=== PATIENT | female | born 1960 | race American Indian/Alaskan Native ===

== ENCOUNTER 2017-01-18 00:13 | Inpatient (IN) | payer SELFPAY ==
--- NOTE | 2017-01-18 00:23 | Emergency Department Report ---
HPI - General Time Seen by Provider: 01/18/17 00:16 - HPI HPI: EMS triage/room 2 The patient is a 56-year-old female presenting with a chief complaint of right- sided weakness. Family states that approximately 19:00 this evening the patient noticed difficulty moving her right side inability to ambulate. Patient denies headache nausea vomiting. Patient states she feels fine except difficulty moving her right side. Location: Right upper extremity, right lower extremity right face Duration: Constant since 19:00 Quality: Weakness Severity: Moderate Modifying factors: [see above] Context: [see above] Mode of transportation: EMS ED Past Medical Hx - Past Medical History Hx Hypertension: Yes Hx Diabetes: Yes - Surgical History Past Surgical History?: No Additional Surgical History: hysterectomy - Family History Family history: no significant - Social History Smoking Status: Never Smoker Substance Use Type: None - Medications Home Medications: Home Medications Medication Instructions Recorded Confirmed Last Taken Type Lisinopril 10 mg PO DAILY 07/16/14 04/19/16 04/14/16 History Ergocalciferol [Vitamin D2] 1 cap PO QWEEK 01/18/17 01/18/17 Unknown History Hydrochlorothiazide [HCTZ] 25 mg PO QDAY 01/18/17 01/18/17 Unknown History glipiZIDE [Glucotrol] 10 mg PO QDAY 01/18/17 01/18/17 Unknown History metFORMIN [Glucophage] 850 mg PO QDAY 01/18/17 01/18/17 Unknown History ED Review of Systems ROS: Stated complaint: CODE STROKE Other details as noted in HPI Comment: All other systems reviewed and negative Constitutional: denies: chills, fever Eyes: denies: eye pain, eye discharge, vision change ENT: denies: ear pain, throat pain Respiratory: denies: cough, shortness of breath, wheezing Cardiovascular: denies: chest pain, palpitations Endocrine: no symptoms reported Gastrointestinal: denies: abdominal pain, nausea, diarrhea Genitourinary: denies: urgency, dysuria, discharge Musculoskeletal: denies: back pain, joint swelling, arthralgia Skin: denies: rash, lesions Neurological: weakness. denies: headache, numbness Psychiatric: denies: anxiety, depression Hematological/Lymphatic: denies: easy bleeding, easy bruising Physical Exam - Physical Exam Physical Exam: GENERAL: The patient is well-developed well-nourished female sitting on EMS stretcher with obvious right facial droop but not appearing to be in acute distress. [] HEENT: Normocephalic. Atraumatic. Extraocular motions are intact. Right facial droop NECK: Supple. Trachea midline CHEST/LUNGS: Clear to auscultation. There is no respiratory distress noted. HEART/CARDIOVASCULAR: Regular. There is no tachycardia. There is no gallop rub or murmur. ABDOMEN: Abdomen is soft, nontender. Patient has normal bowel sounds. There is no abdominal distention. SKIN: There is no rash. There is no edema. There is no diaphoresis. NEURO: The patient is awake, alert, and oriented. The patient is cooperative. Cranial nerves II through XII grossly intact with exception of right facial droop. Left traveling operator 5+/5, right traveling operator 3+/5. Normal sensation throughout. Patient able to flex left lower extremity at the knee and hip without difficulty. Patient uses considerable injury to attempt to flex right lower extremity at the hip and knee. The patient has mild dysarthria. NIHSS= 7 MUSCULOSKELETAL:There is no evidence of acute injury. ED Course - Consultations Consultation #1: 01/18/17 00:32 Tele-neurology paged 01/18/17 00:[address] Taylor- states since patient is also out of window for TPA recommends performing a CT angiogram of the head and neck. This is negative recommends admitting the patient to the hospital for routine stroke workup and management ED Medical Decision Making - Lab Data Result diagrams: 01/18/17 00:15 01/18/17 00:15 Laboratory Tests 01/18/17 01/18/17 01/18/17 00:15 00:15 00:15 WBC 10.8 RBC 4.64 Hgb 14.0 Hct 42.0 MCV 91 MCH 30 MCHC 33 RDW 13.8 Plt Count 312 Lymph % (Auto) 29.6 [place] % (Auto) 6.5 Eos % (Auto) 0.4 Baso % (Auto) 0.8 Lymph # 3.2 [place] # 0.7 Eos # 0.0 Baso # 0.1 Seg Neutrophils % 62.7 Seg Neutrophils # 6.8 PT 13.3 INR 1.02 APTT 29.1 VBG pH Sodium 141 Potassium 3.6 Chloride 103.8 Carbon Dioxide 23 Anion Gap 18 BUN 16 Creatinine 0.6 L Estimated GFR > 60 BUN/Creatinine Ratio 26.66 Glucose 276 H Calcium 8.7 Urine Color Urine Turbidity Urine pH Ur Specific [place] Urine Protein Urine Glucose (UA) Urine Ketones Urine Blood Urine Nitrite Urine Bilirubin Urine Urobilinogen Ur Leukocyte Esterase Urine WBC (Auto) Urine RBC (Auto) U Epithel Cells (Auto) Urine Bacteria (Auto) Urine Mucus 01/18/17 01/18/17 00:15 Unknown WBC RBC Hgb Hct MCV MCH MCHC RDW Plt Count Lymph % (Auto) [place] % (Auto) Eos % (Auto) Baso % (Auto) Lymph # [place] # Eos # Baso # Seg Neutrophils % Seg Neutrophils # PT INR APTT VBG pH 7.405 Sodium Potassium Chloride Carbon Dioxide Anion Gap BUN Creatinine Estimated GFR BUN/Creatinine Ratio Glucose Calcium Urine Color Yellow Urine Turbidity Clear Urine pH 5.0 Ur Specific [place] 1.025 Urine Protein 30 mg/dl Urine Glucose (UA) >=500 Urine Ketones Tr Urine Blood Mod Urine Nitrite Neg Urine Bilirubin Neg Urine Urobilinogen < 2.0 Ur Leukocyte Esterase Lg Urine WBC (Auto) 26.0 H Urine RBC (Auto) 6.0 U Epithel Cells (Auto) 1.0 Urine Bacteria (Auto) 2+ Urine Mucus Few - EKG Data -: EKG Interpreted by Nc EKG shows normal: sinus rhythm Rate: normal - EKG Data When compared to previous EKG there are: no significant change Interpretation: unchanged when compared t (04/19/2016), other (no ischemic changes seen) - Radiology Data Radiology results: report reviewed (CT head, CT angiogram brain, CT angiogram neck), image reviewed (CT head, CT angiogram brain, CT angiogram neck) CT head (read by radiologist)-there is no evidence of acute intracranial process CT angiogram brain/neck (read by radiologist)-normal vascular structures of the head and neck. Critical care attestation.: If time is entered above; I have spent that time in minutes in the direct care of this critically ill patient, excluding procedure time. ED Disposition Clinical Impression: CVA (cerebral vascular accident) Disposition: OP ADMITTED IP TO THIS HOSP Is pt being admited?: Yes Does the pt Need Aspirin: Yes Condition: Fair Referrals: PRIMARY CARE, [Primary Care Provider] - 3-5 Days Time of Disposition: 04:47 (hospitalist paged)
[2017-01-18 00:26] LABS: Basophils % (Auto) 0.8 % (0.0-1.8); Eosinophils % (Auto) 0.4 % (0.0-4.3); Mean Corpuscular HGB Conc 33 % (30-34); Mean Corpuscular Hemoglobin 30 pg (28-32); Mean Corpuscular Volume 91 fl (79-97); Platelet Count 312 K/mm3 (140-440); Red Blood Count 4.64 M/mm3 (3.65-5.03); Red Cell Distribution Width 13.8 % (13.2-15.2); White Blood Count 10.8 K/mm3 (4.5-11.0)
[2017-01-18 00:41] LABS: Chloride 103.8 mmol/L (98-107); Potassium 3.6 mmol/L (3.6-5.0); Sodium 141 mmol/L (137-145)
[2017-01-18 00:42] LABS: Anion Gap 18 mmol/L; BUN/Creatinine Ratio 26.66; Blood Urea Nitrogen 16 mg/dL (7-17); Calcium 8.7 mg/dL (8.4-10.2); Carbon Dioxide 23 mmol/L (22-30); Glucose 276 mg/dL (65-100)
--- NOTE | 2017-01-18 00:44 | Cat Scan Report ---
FINAL REPORT PROCEDURE: CT HEAD/BRAIN WO CON TECHNIQUE: Computerized tomography of the head was performed without contrast material. HISTORY: right-sided weakness COMPARISON: No prior studies are available for comparison. FINDINGS: Skull and scalp: Normal. Paranasal sinuses: There is partial opacification ethmoid and right maxillary sinuses.. Ventricles and subarachnoid spaces: Normal. Cerebrum: No evidence of hemorrhage, acute infarction or mass. Minimal atrophy is noted. Periventricular deep white matter changes. There are multiple old lacunar infarctions of both basal ganglia.. Cerebellum and brainstem: No evidence of hemorrhage, acute infarction or mass. Vasculature: Normal. Comments: None. IMPRESSION: There is no evidence of an acute intracranial process. Mild atrophy and periventricular deep white matter changes are noted. Old lacunar infarctions of both basal ganglia are identified.
[2017-01-18 00:46] LABS: INR 1.02 (0.87-1.13)
[2017-01-18 00:47] LABS: Partial Thromboplastin Time 29.1 Sec. (24.2-36.6)
[2017-01-18] MEDS ORDERED: NACL ONE (01:16)
[2017-01-18 01:57] LABS: Bacteria,Urine 2+ /HPF (Negative); Bilirubin,Urine NEG (Negative); Blood,Urine MOD (Negative); Ketones,Urine TR mg/dL (Negative); Leukocyte Esterase,Urine LG (Negative); Mucus,Urine FEW /HPF; Nitrite,Urine NEG (Negative); Urobilinogen,Urine < 2.0 mg/dL (<2.0)
--- NOTE | 2017-01-18 03:14 | Cat Scan Report ---
FINAL REPORT PROCEDURE: CT ANGIO HEAD TECHNIQUE: Computerized tomographic angiography of the head was performed after the IV injection of iodinated nonionic contrast including image processing. The image data was postprocessed using 2-dimensional multiplanar reformatted (MPR) and 3-dimensional (MIP and/or volume rendered) techniques. HISTORY: right-sided weakness COMPARISON: No prior studies are available for comparison. FINDINGS: Cerebrum: No evidence of acute intracranial hemorrhage, hematoma or infarction. Moderate atrophy and periventricular deep white matter change. There are multiple old lacunar infarctions of both basal ganglia. Cerebellum: No evidence of hemorrhage, acute ischemia or mass. Subarachnoid spaces and ventricles: Normal. Intracranial vessels: Carotid siphon: Normal. Anterior cerebral: Normal. Middle cerebral: Normal. Posterior cerebral:Normal. Vertebral arteries including basilar: Normal. Aneurysms: None. Dural sinuses: Normal. IMPRESSION: The vasculature is normal.
[2017-01-18] MEDS ORDERED: ASPIRIN PO ONE (03:41)
[2017-01-18] MEDS ORDERED: ZOFRAN IV PRN (05:40)
[2017-01-18] MEDS ORDERED: MILK OF MAGNESIA PO PRN (05:40)
[2017-01-18] MEDS ORDERED: DULCOLAX PR PRN (05:40)
[2017-01-18] MEDS ORDERED: TYLENOL PO PRN (05:40)
[2017-01-18] MEDS ORDERED: SODIUM CHLORIDE FLUSH SYRINGE 10 ML IV PRN (05:40)
--- NOTE | 2017-01-18 05:50 | History and Physical Report ---
History of Present Illness Date of examination: 01/18/17 History of present illness: 56-year-old woman with a history of hypertension, diabetes comes emergency room this morning because she discovered that her right side was weak. Speech was also noted to be slurred in the emergency room. Patient has not taken her antihypertensives in 4 days Patient denies chest pain, palpitation, shortness of breath, cough, abdominal pain, hematochezia, dysuria, frequency, fever chills, polydipsia polyuria, hot or cold intolerance, easy bruisability, or rash or bleeding from mucosal membrane, rhinorrhea, epistaxis, earache, tinnitus, blurry vision, eye discharge , anxiety, depression. Other review of systems negative PAST SURGICAL HISTORY: Hysterectomy SOCIAL HISTORY: Smoked one cigar a day, Denies alcohol, drugs FAMILY HISTORY: Hypertension 0 Medications and Allergies Allergies Allergy/AdvReac Type Severity Reaction Status Date / Time No Known Allergies Allergy Unverified 07/16/14 08:02 Home Medications Medication Instructions Recorded Confirmed Last Taken Type Lisinopril 30 mg PO DAILY 07/16/14 01/18/17 04/14/16 History Ergocalciferol [Vitamin D2] 1 cap PO QWEEK 01/18/17 01/18/17 Unknown History Hydrochlorothiazide [HCTZ] 25 mg PO QDAY 01/18/17 01/18/17 Unknown History glipiZIDE [Glucotrol] 10 mg PO QDAY 01/18/17 01/18/17 Unknown History metFORMIN [Glucophage] 850 mg PO QDAY 01/18/17 01/18/17 Unknown History Exam - Physical Exam Narrative exam: Gen. appearance: Patient lying in bed, no apparent distress HEENT: Normocephalic, atraumatic, pupils equally round and reactive to light, extraocular movement intact, and no sclericterus,. No JVD or thyromegaly or nodule,neck supple, no carotid bruit ,mucous membranes moist, no exudate or erythema Heart: S1, S2, regular rate and rhythm Lungs: Clear to auscultation bilaterally, breathing comfortable Abdomen: Positive bowel sounds, nontender, nondistended, no organomegaly Extremity: No edema, cyanosis, clubbing Skin: No rash, nodules, warm, dry Neuro: Oriented 3, cranial nerves II-12 intact, speech is slurred, right hemiparesis 1/5, and sensory intact - Constitutional Vitals: Temp Pulse Resp BP Pulse Ox 98.3 F 77 21 184/103 98 01/18/17 00:29 01/18/17 02:15 01/18/17 02:15 01/18/17 02:15 01/18/17 02:15 Results - Labs CBC & Chem 7: 01/18/17 00:15 01/18/17 00:15 Labs: Abnormal lab results 01/18/17 01/18/17 Range/Units 00:15 Unknown Creatinine 0.6 L (0.7-1.2) mg/dL Glucose 276 H (65-100) mg/dL Urine WBC (Auto) 26.0 H (0.0-6.0) /HPF - Imaging and Cardiology CT Scan - head: report reviewed Assessment and Plan CTA head and neck are reviewed Acute CVA Hypertension uncontrolled Diabetes of 2 Noncompliance Admits medicine Obtain MRI of the head, do neurochecks, swallow screen Start IV hydralazine as needed for blood pressure control Check fingersticks initiate insulin sliding scale Check echo, consult neurology consult physical, speech, occupational therapy Start DVT prophylaxis
[2017-01-18] MEDS: APRESOLINE IV PRN (06:20)
--- NOTE | 2017-01-18 06:34 | Admit Criteria Form ---
Admission Criteria Documentation: TELEMETRY CARE Telemetry Admission Guidelines (Place 'X' for any and all applicable criteria): Admission to telemetry [A] may be indicated for ANY ONE of the following(1)(2)(3 )(4)(5): [ ]I. Cardiac disease, including ANY ONE of the following (9)(10)(11)(12)(13 ): [ ]a) Postacute IL [ ]b) Low-risk patients with ST-segment elevation IL who have undergone successful percutaneous coronary intervention [ ]c) Unstable angina [ ]d) Suspected IL (until it is ruled out) [ ]e) Post cardiac surgery (first 48 to 72 hours unless complications occur) [ ]f) Acute arrhythmias (including significant tachycardia or bradycardia) [B] [ ]g) Firing of an implantable cardioverter defibrillator [C] [ ]h) Suspected pacemaker or implantable cardioverter defibrillator malfunction (10) [ ]i) New administration or adjustment of an antiarrhythmic drug [D ] [ ]j) Child admitted for acute congestive heart failure [ ]j) Long QT syndrome [ ]k) Advanced heart block (eg, second-degree Mobitz type II, third- degree heart block) [ ]l) Acute myocarditis or pericarditis [ ]m) Short-term (ambulatory or inpatient) monitoring after a cardiac procedure as indicated by ANY ONE of the following [E]: [ ]i) Electrophysiologic studies [ ]ii) Percutaneous coronary intervention with stent placement [ ]iii) Pacemaker placement with cardiac conduction defect [ ]iv) Implantable cardiac defibrillator placement [ ]II. Drug overdose or poisoning with substance that causes arrhythmias or QT prolongation (eg, phenothiazines, sympathomimetic agents, cyclic antidepressants, digitalis, antiarrhythmic drugs)(15) [ ]III. Short-term (ambulatory or inpatient) monitoring after therapeutic or diagnostic procedure requiring conscious sedation or anesthesia (eg, endoscopy, elective cardioversion) [X ]IV. Acute cerebrovascular even[F](18) [ ]V. Massive blood transfusion (eg, at least 10 units of packed red blood cells in 24 hours) [ ]. Variceal bleeding after endoscopy, sclerotherapy, or IV vasopressin [ ]VII. Uncorrected electrolyte abnormalities associated with an increased risk of dangerous arrhythmia [G]; examples include [ ]a) Hyperkalemia with attributable ECG changes [ ]b) Potassium greater than 6.5 mmol/L (mEq/L) in a patient without history of chronic renal disease [ ]c) Prolonged QT attributed to hypokalemia, hypomagnesemia, or hypocalcemia [ ]VIII.Unexplained syncope or other neurologic event suspected of being due to arrhythmia due to a finding that increases risk; examples include(19)(20)(21): [ ]a) High-risk ECG findings (eg, bifascicular block, bradycardia, abnormal QT interval, ventricular pre- excitation) [ ]b) History of previous syncope due to arrhythmia [ ]c) Abnormal ventricular function (eg, reduced ejection fraction ) [ ]d) Exertional or supine syncope [ ]e) Concerning syncope characteristics (eg, sudden loss of consciousness without prodrome) [ ]f) Family history of sudden [ ]g) Use of arrhythmogenic medication [ ]h) Suspected cardiac ischemia [ ]i) Known channelopathy (eg, long QT syndrome, Brugada syndrome, or catecholaminergic paroxysmal ventricular tachycardia) [ ]j) Known structural heart disease (eg, hypertrophic cardiomyopathy , severe valvular disease) [ ]k) Palpitations preceding syncope The original [employer] content created by [employer] has been revised. The portions of the content which have been revised are identified through the use of italic text or in bold, and [employer] has neither reviewed nor approved the modified material. All other unmodified content is copyright [employer]. Please see references footnoted in the original [employer] edition 2016 Admission Criteria Met: Yes
--- NOTE | 2017-01-18 08:12 | Progress Note ---
Assessment and Plan - Patient Problems (1) Right sided weakness Current Visit: Yes Status: Acute Plan to address problem: Awaiting further Neurology input , schedule for MRI/MRA of the Brain, ASA, Lipitor (2) Hypertension Current Visit: Yes Status: Acute Qualifiers: Hypertension type: H Plan to address problem: BP moderately controlled History Interval history: Patient admits to right sided weakness Hospitalist Physical - Constitutional Vitals: Temp Pulse Resp BP Pulse Ox 98.3 F 70 22 192/101 100 01/18/17 00:29 01/18/17 06:20 01/18/17 06:16 01/18/17 06:20 01/18/17 06:16 General appearance: Present: mild distress - EENT Eyes: Present: PERRL, EOM intact ENT: hearing intact, clear oral mucosa - Neck Neck: Present: supple, normal ROM - Respiratory Respiratory effort: normal Respiratory: bilateral: CTA - Cardiovascular Rhythm: regular Heart Sounds: Present: S1 & S2 - Extremities Extremities: no ischemia, pulses symmetrical - Abdominal General gastrointestinal: soft, non-tender, non-distended, normal bowel sounds - Psychiatric Psychiatric: appropriate mood/affect, intact judgment & insight - Neurologic Neurologic: other (right sided weakness) Results - Labs CBC & Chem 7: 01/18/17 00:15 01/18/17 00:15 Labs: Laboratory Last Values WBC 10.8 K/mm3 (4.5-11.0) 01/18/17 00:15 RBC 4.64 M/mm3 (3.65-5.03) 01/18/17 00:15 Hgb 14.0 gm/dl (10.1-14.3) 01/18/17 00:15 Hct 42.0 % (30.3-42.9) 01/18/17 00:15 MCV 91 fl (79-97) 01/18/17 00:15 MCH 30 pg (28-32) 01/18/17 00:15 MCHC 33 % (30-34) 01/18/17 00:15 RDW 13.8 % (13.2-15.2) 01/18/17 00:15 Plt Count 312 K/mm3 (140-440) 01/18/17 00:15 Lymph % (Auto) 29.6 % (13.4-35.0) 01/18/17 00:15 [place] % (Auto) 6.5 % (0.0-7.3) 01/18/17 00:15 Eos % (Auto) 0.4 % (0.0-4.3) 01/18/17 00:15 Baso % (Auto) 0.8 % (0.0-1.8) 01/18/17 00:15 Lymph # 3.2 K/mm3 (1.2-5.4) 01/18/17 00:15 [place] # 0.7 K/mm3 (0.0-0.8) 01/18/17 00:15 Eos # 0.0 K/mm3 (0.0-0.4) 01/18/17 00:15 Baso # 0.1 K/mm3 (0.0-0.1) 01/18/17 00:15 Seg Neutrophils % 62.7 % (40.0-70.0) 01/18/17 00:15 Seg Neutrophils # 6.8 K/mm3 (1.8-7.7) 01/18/17 00:15 PT 13.3 Sec. (12.2-14.9) 01/18/17 00:15 INR 1.02 (0.87-1.13) 01/18/17 00:15 APTT 29.1 Sec. (24.2-36.6) 01/18/17 00:15 VBG pH 7.405 (7.320-7.420) 01/18/17 00:15 Sodium 141 mmol/L (137-145) 01/18/17 00:15 Potassium 3.6 mmol/L (3.6-5.0) 01/18/17 00:15 Chloride 103.8 mmol/L (98-107) 01/18/17 00:15 Carbon Dioxide 23 mmol/L (22-30) 01/18/17 00:15 Anion Gap 18 mmol/L 01/18/17 00:15 BUN 16 mg/dL (7-17) 01/18/17 00:15 Creatinine 0.6 mg/dL (0.7-1.2) L 01/18/17 00:15 Estimated GFR > 60 ml/min 01/18/17 00:15 BUN/Creatinine Ratio 26.66 % 01/18/17 00:15 Glucose 276 mg/dL (65-100) H 01/18/17 00:15 Calcium 8.7 mg/dL (8.4-10.2) 01/18/17 00:15 Urine Color Yellow (Yellow) 01/18/17 Unknown Urine Turbidity Clear (Clear) 01/18/17 Unknown Urine pH 5.0 (5.0-7.0) 01/18/17 Unknown Ur Specific [place] 1.025 (1.003-1.030) 01/18/17 Unknown Urine Protein 30 mg/dl mg/dL (Negative) 01/18/17 Unknown Urine Glucose (UA) >=500 mg/dL (Negative) 01/18/17 Unknown Urine Ketones Tr mg/dL (Negative) 01/18/17 Unknown Urine Blood Mod (Negative) 01/18/17 Unknown Urine Nitrite Neg (Negative) 01/18/17 Unknown Urine Bilirubin Neg (Negative) 01/18/17 Unknown Urine Urobilinogen < 2.0 mg/dL (<2.0) 01/18/17 Unknown Ur Leukocyte Esterase Lg (Negative) 01/18/17 Unknown Urine WBC (Auto) 26.0 /HPF (0.0-6.0) H 01/18/17 Unknown Urine RBC (Auto) 6.0 /HPF (0.0-6.0) 01/18/17 Unknown U Epithel Cells (Auto) 1.0 /HPF (0-13.0) 01/18/17 Unknown Urine Bacteria (Auto) 2+ /HPF (Negative) 01/18/17 Unknown Urine Mucus Few /HPF 01/18/17 Unknown
[2017-01-18] MEDS: LOVENOX SUB-Q SCH (09:55)
[2017-01-18] MEDS: ASPIRIN PO SCH (09:55)
[2017-01-18] MEDS ORDERED: LOVENOX SUB-Q SCH (10:00)
--- NOTE | 2017-01-18 11:46 | Consultation ---
History of Present Illness Consult date: 01/18/17 Requesting physician: HENRIETTA SANCHEZ Reason for Consult: stroke Chief complaint: R side weakness History of present illness: 56 YO F Hx HTN/DM2 p/w acute onset R sided weakness onset 01/17 @ 3 PM. Sx are constant. There are no clear aggravating, relieving or temporal factors. Severity was enough to cause inability to effectively use the right side. She denies numbness/tingling pain. Past History Past Medical History: diabetes, hypertension Past Surgical History: No surgical history Social history: single, Lives alone, smoking. denies: prescription drug abuse, IV drug use Family history: diabetes, hypertension Medications and Allergies Allergies Allergy/AdvReac Type Severity Reaction Status Date / Time No Known Allergies Allergy Unverified 07/16/14 08:02 Home Medications Medication Instructions Recorded Confirmed Last Taken Type Lisinopril 30 mg PO DAILY 07/16/14 01/18/17 04/14/16 History Ergocalciferol [Vitamin D2] 1 cap PO QWEEK 01/18/17 01/18/17 Unknown History Hydrochlorothiazide [HCTZ] 25 mg PO QDAY 01/18/17 01/18/17 Unknown History glipiZIDE [Glucotrol] 10 mg PO QDAY 01/18/17 01/18/17 Unknown History metFORMIN [Glucophage] 850 mg PO QDAY 01/18/17 01/18/17 Unknown History Active Meds: Active Medications Acetaminophen (Tylenol) 650 mg PO Q4H PRN PRN Reason: Pain, Mild (1-3) Aspirin (Aspirin) 325 mg PO QDAY [facility] Last Admin: 01/18/17 09:55 Dose: 325 mg Bisacodyl (Dulcolax) 10 mg CA QDAY PRN PRN Reason: Constipation Enoxaparin Sodium (Lovenox) 40 mg SUB-Q QDAY@1000 [facility] Last Admin: 01/18/17 09:55 Dose: 40 mg Hydralazine HCl (Apresoline) 5 mg IV Q6H PRN PRN Reason: Keep SBP between 160-185 mm Hg Last Admin: 01/18/17 06:20 Dose: 5 mg Magnesium Hydroxide (Milk Of Magnesia) 30 ml PO Q4H PRN PRN Reason: Constipation Ondansetron HCl (Zofran) 4 mg IV Q8H PRN PRN Reason: N/V unrelieved by Reglan Simvastatin (Zocor) 20 mg PO QHS DIONNE Sodium Chloride (Sodium Chloride Flush Syringe 10 Ml) 10 ml IV PRN PRN PRN Reason: LINE FLUSH Review of Systems Constitutional: fatigue Neurological: weakness, change in speech (slurred), gait dysfunction, motor disturbance, no parathesias, no numbness, no tingling, no syncope, no headaches , no sensory deficit, no double vision, no loss of vision Physical Examination - Vital Signs Vital Signs: Vital Signs Temp Pulse Resp BP Pulse Ox 98.3 F 73 14 222/100 99 01/18/17 00:29 01/18/17 00:29 01/18/17 00:29 01/18/17 00:01/18/17 00:29 - Constitutional General appearance: comfortable, acutely ill - EENT EENT: Present: ATNC, PERRL, mucous membranes moist, hearing intact, vision intact - Respiratory Respiratory: Present: chest non-tender, normal breath sounds, no respiratory distress - Cardiovascular Cardiovascular: Present: regular rate Extremities: Present: no peripheral edema bilatateraly, no clubbing, cyanosis, no inflammation, no ischemia or petechiae - Gastrointestinal Gastrointestinal: Present: normoactive bowel sounds, soft, non-distended - Integumentary Integumentary: Present: normal - Neurologic Cranial nerve examination: PERRL, EOMI, VFF, V1/V2/V3 grossly intact, tongue midline, intact, Intact Vestibulo-ocular r, intact corneal reflex, facial droop (mild on R) Speech examination: other (slurred) Sensorimotor examination: pronator drift (R), hemiparesis (R) Motor examination - right side: 3/5: biceps, triceps, wrist flexion, wrist extension, coremaker floor, hip flexors, knee extensors, dorsiflexion, toe extension (EHL) , plantarflexion Motor examination - left side: 5/5: biceps, triceps, wrist flexion, wrist extension, coremaker floor, hip flexors, knee extensors, dorsiflexion, toe extension (EHL) , plantarflexion Detailed sensory examination: intact, light touch, temperature Reflex and gait examination: Babinski's sign (on R) Reflexes: 0: ankle, 3+: bicep, knee, tricep - Musculoskeletal Musculoskeletal: Present: no fluid collection, no pain, normal range of motion - Psychiatric Psychiatric: Present: mood/affect appropriate, cooperative Results - Laboratory Findings CBC and BMP: 01/18/17 00:15 01/18/17 00:15 Abnormal Lab Findings: Abnormal Labs 01/18/17 Unknown Urine WBC (Auto) 26.0 H Assessment and Plan 56 YO F Hx HTN/DM2 p/w R sided acute weakness suspected pure motor acute lacunar stroke syndrome. CTH neg. CTA H/N neg. Plan and Recommendation: 1. No indication for pharmacologic thrombolysis with IV tPA or mechanical thrombectomy due to last known normal > 6 hrs from presentation. Current NIHSS 4. 2. Telemetry bed w/ Q4 hour neuro checks 3. Brain imaging: MRI Brain w/o [place] Stroke Protocol 4. TTE to eval for possible cardiac source of embolism 5. Serum Labs: HgA1c, LDL. 6. Permissive HTN for first 24-48 hours: HOB < 30 degrees, isotonic IVF prn and refrain from active Tx of HTN unless BP > 185/105 or pt develops malignant HTN. Can lower MAPs by 10-15% daily to reach goal SBP 120-160 after permissive HTN period 7. Secondary stroke prevention: ASA 325mg Daily x 1 then 81mg QDay & upgrade to full dose statin therapy (Crestor 20mg or 40mg OR Lipitor 40mg or 80mg Daily OR Zocor 40mg QDay) for goal LDL < 70. No firm indication at this point for therapeutic anticoagulation as pt has not had AFib captured on telemetry monitoring. 8. F/E/N: isotonic IVF prn, prn replete, bedside speech/swallow eval prior to PO intake. 9. DVT Prophylaxis 10. Stroke education, PT/OT/Speech Therapy consults, CM evaluation 11. For any changes in neurologic status, pls obtain STAT CTH w/o contrast and call neurology
[2017-01-18] MEDS: ZOCOR PO SCH (22:59)
[2017-01-19 09:30] LABS: Basophils % (Auto) 0.5 % (0.0-1.8); Eosinophils % (Auto) 0.9 % (0.0-4.3); Hematocrit 39.8 % (30.3-42.9); Hemoglobin 13.2 gm/dl (10.1-14.3); Mean Corpuscular HGB Conc 33 % (30-34); Mean Corpuscular Hemoglobin 30 pg (28-32); Mean Corpuscular Volume 90 fl (79-97); Platelet Count 266 K/mm3 (140-440); Red Blood Count 4.43 M/mm3 (3.65-5.03); Red Cell Distribution Width 13.9 % (13.2-15.2); White Blood Count 7.1 K/mm3 (4.5-11.0)
[2017-01-19 10:04] LABS: Alanine Aminotransferase 13 units/L (7-56); Albumin 3.5 g/dL (3.9-5); Albumin/Globulin Ratio 1.1 %; Alkaline Phosphatase 73 units/L (35-129); Anion Gap 17 mmol/L; BUN/Creatinine Ratio 15.71; Blood Urea Nitrogen 11 mg/dL (7-17); Calcium 8.7 mg/dL (8.4-10.2); Carbon Dioxide 25 mmol/L (22-30); Chloride 99.3 mmol/L (98-107); Cholesterol 183 mg/dL (50-199); Glucose 271 mg/dL (65-100); HDL Cholesterol 45 mg/dL (40-59); LDL Cholesterol,Direct 121 mg/dL (50-130); Potassium 3.4 mmol/L (3.6-5.0); Sodium 138 mmol/L (137-145); Total Protein 6.8 g/dL (6.3-8.2); Triglycerides 86 mg/dL (2-149)
--- NOTE | 2017-01-19 11:18 | Magnetic Resonance Report ---
MRA HEAD WITHOUT CONTRAST HISTORY: Stroke. [id number] imaging with MIP reformations of the [place] is submitted. The arteries appear widely patent and free of hemodynamically significant stenosis or aneurysm dilatation. Both vertebral arteries are identified appearing patent as well. IMPRESSION: Unremarkable MRA head.
--- NOTE | 2017-01-19 11:18 | Magnetic Resonance Report ---
MRI OF THE BRAIN WITHOUT CONTRAST: HISTORY: CVA PROCEDURE: Multiplanar, multisequence MR imaging of the brain without IV contrast was performed. FINDINGS: A 1.1 cm focus of diffusion restriction is identified in the left basal ganglia on diffusion image 19. No other areas of diffusion restriction are identified. No evidence for mass, hemorrhage or extra-axial fluid collection. Mild cortical volume loss and nonspecific chronic white matter changes are noted. Chronic focal infarct in the anterior right basal ganglia is noted measuring up to 1.3 cm. No large chronic infarct. The midline structures are central. The basal cisterns are patent. Normal ventricular size. The orbital cavities and sella turcica demonstrate no abnormality. The visualized paranasal sinuses and mastoid air cells are well aerated. IMPRESSION: 1.1 cm focus of acute to subacute ischemia in the left basal ganglia as described. No evidence for hemorrhage. Chronic volume loss and chronic white matter changes.
[2017-01-19] MEDS: ZESTRIL PO SCH (12:30)
[2017-01-19] MEDS: LOVENOX SUB-Q SCH (12:31)
[2017-01-19] MEDS: HCTZ PO SCH (12:31)
[2017-01-19] MEDS: ASPIRIN PO SCH (12:31)
[2017-01-19] MEDS: NOVOLOG SUB-Q SCH ×2 (18:41→23:09)
[2017-01-19] MEDS: ZOCOR PO SCH (22:56)
[2017-01-20] MEDS: APRESOLINE IV PRN (01:21)
[2017-01-20] MEDS: ZESTRIL PO SCH (09:38)
[2017-01-20] MEDS: HCTZ PO SCH (09:38)
[2017-01-20] MEDS: LOVENOX SUB-Q SCH (09:38)
[2017-01-20] MEDS: GLUCOPHAGE PO SCH (09:38)
[2017-01-20] MEDS: ASPIRIN PO SCH (09:38)
[2017-01-20] MEDS: NOVOLOG SUB-Q SCH ×4 (10:40→22:58)
--- NOTE | 2017-01-20 16:54 | Progress Note ---
Assessment and Plan - Patient Problems (1) CVA (cerebral vascular accident) Current Visit: Yes Status: Acute Qualifiers: CVA mechanism: C Precerebral and cerebral artery: P Laterality of affected vessel: L (2) Hypertension Current Visit: Yes Status: Acute Qualifiers: Hypertension type: H (3) Right sided weakness Current Visit: Yes Status: Acute Hospitalist Physical - Constitutional Vitals: Temp Pulse Resp BP Pulse Ox 98.1 F 92 H 20 142/76 97 01/20/17 09:00 01/20/17 09:00 01/20/17 09:00 01/20/17 09:00 01/20/17 09:00 General appearance: Present: mild distress Results - Labs CBC & Chem 7: 01/19/17 08:38 01/19/17 08:38 Labs: Laboratory Last Values WBC 7.1 K/mm3 (4.5-11.0) 01/19/17 08:38 RBC 4.43 M/mm3 (3.65-5.03) 01/19/17 08:38 Hgb 13.2 gm/dl (10.1-14.3) 01/19/17 08:38 Hct 39.8 % (30.3-42.9) 01/19/17 08:38 MCV 90 fl (79-97) 01/19/17 08:38 MCH 30 pg (28-32) 01/19/17 08:38 MCHC 33 % (30-34) 01/19/17 08:38 RDW 13.9 % (13.2-15.2) 01/19/17 08:38 Plt Count 266 K/mm3 (140-440) 01/19/17 08:38 Lymph % (Auto) 32.6 % (13.4-35.0) 01/19/17 08:38 [place] % (Auto) 8.2 % (0.0-7.3) H 01/19/17 08:38 Eos % (Auto) 0.9 % (0.0-4.3) 01/19/17 08:38 Baso % (Auto) 0.5 % (0.0-1.8) 01/19/17 08:38 Lymph # 2.3 K/mm3 (1.2-5.4) 01/19/17 08:38 [place] # 0.6 K/mm3 (0.0-0.8) 01/19/17 08:38 Eos # 0.1 K/mm3 (0.0-0.4) 01/19/17 08:38 Baso # 0.0 K/mm3 (0.0-0.1) 01/19/17 08:38 Seg Neutrophils % 57.8 % (40.0-70.0) 01/19/17 08:38 Seg Neutrophils # 4.1 K/mm3 (1.8-7.7) 01/19/17 08:38 PT 13.3 Sec. (12.2-14.9) 01/18/17 00:15 INR 1.02 (0.87-1.13) 01/18/17 00:15 APTT 29.1 Sec. (24.2-36.6) 01/18/17 00:15 VBG pH 7.405 (7.320-7.420) 01/18/17 00:15 Sodium 138 mmol/L (137-145) 01/19/17 08:38 Potassium 3.4 mmol/L (3.6-5.0) L 01/19/17 08:38 Chloride 99.3 mmol/L (98-107) 01/19/17 08:38 Carbon Dioxide 25 mmol/L (22-30) 01/19/17 08:38 Anion Gap 17 mmol/L 01/19/17 08:38 BUN 11 mg/dL (7-17) 01/19/17 08:38 Creatinine 0.7 mg/dL (0.7-1.2) 01/19/17 08:38 Estimated GFR > 60 ml/min 01/19/17 08:38 BUN/Creatinine Ratio 15.71 % 01/19/17 08:38 Glucose 271 mg/dL (65-100) H 01/19/17 08:38 POC Glucose 184 (70-105) H 01/19/17 22:20 Hemoglobin A1c 12.4 % (4-6) H 01/19/17 08:38 Calcium 8.7 mg/dL (8.4-10.2) 01/19/17 08:38 Total Bilirubin 0.40 mg/dL (0.1-1.2) 01/19/17 08:38 AST 11 units/L (5-40) 01/19/17 08:38 ALT 13 units/L (7-56) 01/19/17 08:38 Alkaline Phosphatase 73 units/L (35-129) 01/19/17 08:38 Total Protein 6.8 g/dL (6.3-8.2) 01/19/17 08:38 Albumin 3.5 g/dL (3.9-5) L 01/19/17 08:38 Albumin/Globulin Ratio 1.1 % 01/19/17 08:38 Triglycerides 86 mg/dL (2-149) 01/19/17 08:38 Cholesterol 183 mg/dL (50-199) 01/19/17 08:38 LDL Cholesterol Direct 121 mg/dL (50-130) 01/19/17 08:38 HDL Cholesterol 45 mg/dL (40-59) 01/19/17 08:38 Cholesterol/HDL Ratio 4.06 % 01/19/17 08:38 Urine Color Yellow (Yellow) 01/18/17 Unknown Urine Turbidity Clear (Clear) 01/18/17 Unknown Urine pH 5.0 (5.0-7.0) 01/18/17 Unknown Ur Specific [place] 1.025 (1.003-1.030) 01/18/17 Unknown Urine Protein 30 mg/dl mg/dL (Negative) 01/18/17 Unknown Urine Glucose (UA) >=500 mg/dL (Negative) 01/18/17 Unknown Urine Ketones Tr mg/dL (Negative) 01/18/17 Unknown Urine Blood Mod (Negative) 01/18/17 Unknown Urine Nitrite Neg (Negative) 01/18/17 Unknown Urine Bilirubin Neg (Negative) 01/18/17 Unknown Urine Urobilinogen < 2.0 mg/dL (<2.0) 01/18/17 Unknown Ur Leukocyte Esterase Lg (Negative) 01/18/17 Unknown Urine WBC (Auto) 26.0 /HPF (0.0-6.0) H 01/18/17 Unknown Urine RBC (Auto) 6.0 /HPF (0.0-6.0) 01/18/17 Unknown U Epithel Cells (Auto) 1.0 /HPF (0-13.0) 01/18/17 Unknown Urine Bacteria (Auto) 2+ /HPF (Negative) 01/18/17 Unknown Urine Mucus Few /HPF 01/18/17 Unknown
[2017-01-20] MEDS: ZOCOR PO SCH (22:03)
--- NOTE | 2017-01-21 08:14 | Progress Note ---
Assessment and Plan - Patient Problems (1) Right sided weakness Current Visit: Yes Status: Acute Plan to address problem: Secondary to acute CVA. Continue PT OT. Continue aspirin. Awaiting further recommendations about rehabilitation. Continue Zocor for lipid lowering. (2) Hypertension Current Visit: Yes Status: Acute Qualifiers: Hypertension type: H Plan to address problem: BP moderately controlled. Continue blood pressure meds (3) Diabetes mellitus Current Visit: Yes Status: Acute Qualifiers: Diabetes mellitus type: D Diabetes mellitus complication status: D Diabetes mellitus complication detail: D Diabetic retinopathy severity: D Proliferative retinopathy type: P Diabetes mellitus macular edema: D Diabetes mellitus senior care insulin use: D Laterality: L Chronic kidney disease stage: C Plan to address problem: Diabetes that appears to be uncontrolled. Hemoglobin A1c is 12.4. We'll continue patient on ADA diet sliding scale insulin, Accu-Cheks. We'll start Lantus 15 units daily at bedtime and continue metformin History Interval history: Patient lying in bed this morning stated that she feels okay Hospitalist Physical - Constitutional Vitals: Temp Pulse Resp BP Pulse Ox 98.1 F 80 20 136/80 97 01/21/17 05:52 01/21/17 05:52 01/21/17 05:52 01/21/17 05:52 01/21/17 05:52 General appearance: Present: no acute distress - EENT Eyes: Present: PERRL, EOM intact ENT: hearing intact, clear oral mucosa - Neck Neck: Present: supple, normal ROM - Respiratory Respiratory effort: normal Respiratory: bilateral: CTA - Cardiovascular Rhythm: regular Heart Sounds: Present: S1 & S2 - Extremities Extremities: no ischemia, No edema - Abdominal General gastrointestinal: soft, non-tender, non-distended, normal bowel sounds - Psychiatric Psychiatric: appropriate mood/affect, intact judgment & insight - Neurologic Neurologic: other (right-sided weakness) Results - Labs CBC & Chem 7: 01/19/17 08:38 01/19/17 08:38 Labs: Laboratory Last Values WBC 7.1 K/mm3 (4.5-11.0) 01/19/17 08:38 RBC 4.43 M/mm3 (3.65-5.03) 01/19/17 08:38 Hgb 13.2 gm/dl (10.1-14.3) 01/19/17 08:38 Hct 39.8 % (30.3-42.9) 01/19/17 08:38 MCV 90 fl (79-97) 01/19/17 08:38 MCH 30 pg (28-32) 01/19/17 08:38 MCHC 33 % (30-34) 01/19/17 08:38 RDW 13.9 % (13.2-15.2) 01/19/17 08:38 Plt Count 266 K/mm3 (140-440) 01/19/17 08:38 Lymph % (Auto) 32.6 % (13.4-35.0) 01/19/17 08:38 [place] % (Auto) 8.2 % (0.0-7.3) H 01/19/17 08:38 Eos % (Auto) 0.9 % (0.0-4.3) 01/19/17 08:38 Baso % (Auto) 0.5 % (0.0-1.8) 01/19/17 08:38 Lymph # 2.3 K/mm3 (1.2-5.4) 01/19/17 08:38 [place] # 0.6 K/mm3 (0.0-0.8) 01/19/17 08:38 Eos # 0.1 K/mm3 (0.0-0.4) 01/19/17 08:38 Baso # 0.0 K/mm3 (0.0-0.1) 01/19/17 08:38 Seg Neutrophils % 57.8 % (40.0-70.0) 01/19/17 08:38 Seg Neutrophils # 4.1 K/mm3 (1.8-7.7) 01/19/17 08:38 PT 13.3 Sec. (12.2-14.9) 01/18/17 00:15 INR 1.02 (0.87-1.13) 01/18/17 00:15 APTT 29.1 Sec. (24.2-36.6) 01/18/17 00:15 VBG pH 7.405 (7.320-7.420) 01/18/17 00:15 Sodium 138 mmol/L (137-145) 01/19/17 08:38 Potassium 3.4 mmol/L (3.6-5.0) L 01/19/17 08:38 Chloride 99.3 mmol/L (98-107) 01/19/17 08:38 Carbon Dioxide 25 mmol/L (22-30) 01/19/17 08:38 Anion Gap 17 mmol/L 01/19/17 08:38 BUN 11 mg/dL (7-17) 01/19/17 08:38 Creatinine 0.7 mg/dL (0.7-1.2) 01/19/17 08:38 Estimated GFR > 60 ml/min 01/19/17 08:38 BUN/Creatinine Ratio 15.71 % 01/19/17 08:38 Glucose 271 mg/dL (65-100) H 01/19/17 08:38 POC Glucose 291 (70-105) H 01/20/17 22:15 Hemoglobin A1c 12.4 % (4-6) H 01/19/17 08:38 Calcium 8.7 mg/dL (8.4-10.2) 01/19/17 08:38 Total Bilirubin 0.40 mg/dL (0.1-1.2) 01/19/17 08:38 AST 11 units/L (5-40) 01/19/17 08:38 ALT 13 units/L (7-56) 01/19/17 08:38 Alkaline Phosphatase 73 units/L (35-129) 01/19/17 08:38 Total Protein 6.8 g/dL (6.3-8.2) 01/19/17 08:38 Albumin 3.5 g/dL (3.9-5) L 01/19/17 08:38 Albumin/Globulin Ratio 1.1 % 01/19/17 08:38 Triglycerides 86 mg/dL (2-149) 01/19/17 08:38 Cholesterol 183 mg/dL (50-199) 01/19/17 08:38 LDL Cholesterol Direct 121 mg/dL (50-130) 01/19/17 08:38 HDL Cholesterol 45 mg/dL (40-59) 01/19/17 08:38 Cholesterol/HDL Ratio 4.06 % 01/19/17 08:38 Urine Color Yellow (Yellow) 01/18/17 Unknown Urine Turbidity Clear (Clear) 01/18/17 Unknown Urine pH 5.0 (5.0-7.0) 01/18/17 Unknown Ur Specific [place] 1.025 (1.003-1.030) 01/18/17 Unknown Urine Protein 30 mg/dl mg/dL (Negative) 01/18/17 Unknown Urine Glucose (UA) >=500 mg/dL (Negative) 01/18/17 Unknown Urine Ketones Tr mg/dL (Negative) 01/18/17 Unknown Urine Blood Mod (Negative) 01/18/17 Unknown Urine Nitrite Neg (Negative) 01/18/17 Unknown Urine Bilirubin Neg (Negative) 01/18/17 Unknown Urine Urobilinogen < 2.0 mg/dL (<2.0) 01/18/17 Unknown Ur Leukocyte Esterase Lg (Negative) 01/18/17 Unknown Urine WBC (Auto) 26.0 /HPF (0.0-6.0) H 01/18/17 Unknown Urine RBC (Auto) 6.0 /HPF (0.0-6.0) 01/18/17 Unknown U Epithel Cells (Auto) 1.0 /HPF (0-13.0) 01/18/17 Unknown Urine Bacteria (Auto) 2+ /HPF (Negative) 01/18/17 Unknown Urine Mucus Few /HPF 01/18/17 Unknown
[2017-01-21] MEDS: GLUCOPHAGE PO SCH (08:51)
[2017-01-21] MEDS: NOVOLOG SUB-Q SCH ×4 (08:52→22:14)
[2017-01-21] MEDS: ASPIRIN PO SCH (09:02)
[2017-01-21] MEDS: ZESTRIL PO SCH (09:02)
[2017-01-21] MEDS: HCTZ PO SCH (09:02)
[2017-01-21] MEDS: LOVENOX SUB-Q SCH (09:04)
[2017-01-21] MEDS: ZOCOR PO SCH (22:20)
[2017-01-21] MEDS: LEVEMIR SUB-Q SCH (22:20)
[2017-01-22 07:58] LABS: Basophils % (Auto) 0.5 % (0.0-1.8); Eosinophils % (Auto) 1.5 % (0.0-4.3); Hematocrit 40.1 % (30.3-42.9); Hemoglobin 13.4 gm/dl (10.1-14.3); Mean Corpuscular HGB Conc 34 % (30-34); Mean Corpuscular Hemoglobin 30 pg (28-32); Mean Corpuscular Volume 91 fl (79-97); Platelet Count 272 K/mm3 (140-440); Red Blood Count 4.44 M/mm3 (3.65-5.03); Red Cell Distribution Width 13.8 % (13.2-15.2); White Blood Count 5.9 K/mm3 (4.5-11.0)
[2017-01-22 08:08] LABS: Alanine Aminotransferase 15 units/L (7-56); Albumin 3.5 g/dL (3.9-5); Alkaline Phosphatase 68 units/L (35-129); Anion Gap 16 mmol/L; BUN/Creatinine Ratio 21.42; Blood Urea Nitrogen 15 mg/dL (7-17); Calcium 9.1 mg/dL (8.4-10.2); Carbon Dioxide 27 mmol/L (22-30); Chloride 98.8 mmol/L (98-107); Glucose 156 mg/dL (65-100); Potassium 3.2 mmol/L (3.6-5.0); Sodium 139 mmol/L (137-145); Total Protein 6.9 g/dL (6.3-8.2)
[2017-01-22] MEDS: GLUCOPHAGE PO SCH (08:52)
[2017-01-22] MEDS: NOVOLOG SUB-Q SCH ×4 (08:55→22:44)
[2017-01-22] MEDS: ZESTRIL PO SCH (10:59)
[2017-01-22] MEDS: HCTZ PO SCH (10:59)
[2017-01-22] MEDS: ASPIRIN PO SCH (11:00)
[2017-01-22] MEDS: LOVENOX SUB-Q SCH (11:00)
--- NOTE | 2017-01-22 13:10 | Progress Note ---
Assessment and Plan Assessment and plan: Acute CVA with right-sided weakness. Continue PT/OT. Continue aspirin and Zocor for secondary prevention. Continue stroke education, PT/OT/speech therapy. No indication for pharmacologic thrombolysis with IV tPA or mechanical thrombectomy due to last known normal > 6 hrs from presentation. Follow-up MRI. Hypertension. Continue current hypertensive medications. Diabetes mellitus type 2. Diabetes appears to be uncontrolled given hemoglobin A1c is 12.4. Lantus started at bedtime. Continue metformin. Continue Accu- Cheks and sliding scale insulin. History Interval history: No new issues overnight. Hospitalist Physical - Constitutional Vitals: Temp Pulse Resp BP Pulse Ox 98.6 F 87 22 130/79 97 01/22/17 11:25 01/22/17 11:25 01/22/17 11:25 01/22/17 11:25 01/22/17 07:25 General appearance: Present: no acute distress - EENT Eyes: Present: PERRL, EOM intact ENT: hearing intact, clear oral mucosa, dentition normal - Neck Neck: Present: supple, normal ROM - Respiratory Respiratory effort: normal Respiratory: bilateral: CTA - Cardiovascular Rhythm: regular Heart Sounds: Present: S1 & S2. Absent: gallop, rub - Extremities Extremities: no ischemia, No edema, Full ROM - Abdominal General gastrointestinal: soft, non-tender, non-distended, normal bowel sounds - Integumentary Integumentary: Present: clear, warm, dry - Neurologic Neurologic: CNII-XII intact, moves all extremities Results - Labs CBC & Chem 7: 01/22/17 07:01 01/22/17 07:01 Labs: Laboratory Last Values WBC 5.9 K/mm3 (4.5-11.0) 01/22/17 07:01 RBC 4.44 M/mm3 (3.65-5.03) 01/22/17 07:01 Hgb 13.4 gm/dl (10.1-14.3) 01/22/17 07:01 Hct 40.1 % (30.3-42.9) 01/22/17 07:01 MCV 91 fl (79-97) 01/22/17 07:01 MCH 30 pg (28-32) 01/22/17 07:01 MCHC 34 % (30-34) 01/22/17 07:01 RDW 13.8 % (13.2-15.2) 01/22/17 07:01 Plt Count 272 K/mm3 (140-440) 01/22/17 07:01 Lymph % (Auto) 35.6 % (13.4-35.0) H 01/22/17 07:01 [place] % (Auto) 9.9 % (0.0-7.3) H 01/22/17 07:01 Eos % (Auto) 1.5 % (0.0-4.3) 01/22/17 07:01 Baso % (Auto) 0.5 % (0.0-1.8) 01/22/17 07:01 Lymph # 2.1 K/mm3 (1.2-5.4) 01/22/17 07:01 [place] # 0.6 K/mm3 (0.0-0.8) 01/22/17 07:01 Eos # 0.1 K/mm3 (0.0-0.4) 01/22/17 07:01 Baso # 0.0 K/mm3 (0.0-0.1) 01/22/17 07:01 Seg Neutrophils % 52.5 % (40.0-70.0) 01/22/17 07:01 Seg Neutrophils # 3.1 K/mm3 (1.8-7.7) 01/22/17 07:01 PT 13.3 Sec. (12.2-14.9) 01/18/17 00:15 INR 1.02 (0.87-1.13) 01/18/17 00:15 APTT 29.1 Sec. (24.2-36.6) 01/18/17 00:15 VBG pH 7.405 (7.320-7.420) 01/18/17 00:15 Sodium 139 mmol/L (137-145) 01/22/17 07:01 Potassium 3.2 mmol/L (3.6-5.0) L 01/22/17 07:01 Chloride 98.8 mmol/L (98-107) 01/22/17 07:01 Carbon Dioxide 27 mmol/L (22-30) 01/22/17 07:01 Anion Gap 16 mmol/L 01/22/17 07:01 BUN 15 mg/dL (7-17) 01/22/17 07:01 Creatinine 0.7 mg/dL (0.7-1.2) 01/22/17 07:01 Estimated GFR > 60 ml/min 01/22/17 07:01 BUN/Creatinine Ratio 21.42 % 01/22/17 07:01 Glucose 156 mg/dL (65-100) H 01/22/17 07:01 POC Glucose 216 (70-105) H 01/22/17 12:06 Hemoglobin A1c 12.4 % (4-6) H 01/19/17 08:38 Calcium 9.1 mg/dL (8.4-10.2) 01/22/17 07:01 Total Bilirubin 0.40 mg/dL (0.1-1.2) 01/22/17 07:01 AST 10 units/L (5-40) 01/22/17 07:01 ALT 15 units/L (7-56) 01/22/17 07:01 Alkaline Phosphatase 68 units/L (35-129) 01/22/17 07:01 Total Protein 6.9 g/dL (6.3-8.2) 01/22/17 07:01 Albumin 3.5 g/dL (3.9-5) L 01/22/17 07:01 Albumin/Globulin Ratio 1.0 % 01/22/17 07:01 Triglycerides 86 mg/dL (2-149) 01/19/17 08:38 Cholesterol 183 mg/dL (50-199) 01/19/17 08:38 LDL Cholesterol Direct 121 mg/dL (50-130) 01/19/17 08:38 HDL Cholesterol 45 mg/dL (40-59) 01/19/17 08:38 Cholesterol/HDL Ratio 4.06 % 01/19/17 08:38 Urine Color Yellow (Yellow) 01/18/17 Unknown Urine Turbidity Clear (Clear) 01/18/17 Unknown Urine pH 5.0 (5.0-7.0) 01/18/17 Unknown Ur Specific [place] 1.025 (1.003-1.030) 01/18/17 Unknown Urine Protein 30 mg/dl mg/dL (Negative) 01/18/17 Unknown Urine Glucose (UA) >=500 mg/dL (Negative) 01/18/17 Unknown Urine Ketones Tr mg/dL (Negative) 01/18/17 Unknown Urine Blood Mod (Negative) 01/18/17 Unknown Urine Nitrite Neg (Negative) 01/18/17 Unknown Urine Bilirubin Neg (Negative) 01/18/17 Unknown Urine Urobilinogen < 2.0 mg/dL (<2.0) 01/18/17 Unknown Ur Leukocyte Esterase Lg (Negative) 01/18/17 Unknown Urine WBC (Auto) 26.0 /HPF (0.0-6.0) H 01/18/17 Unknown Urine RBC (Auto) 6.0 /HPF (0.0-6.0) 01/18/17 Unknown U Epithel Cells (Auto) 1.0 /HPF (0-13.0) 01/18/17 Unknown Urine Bacteria (Auto) 2+ /HPF (Negative) 01/18/17 Unknown Urine Mucus Few /HPF 01/18/17 Unknown
[2017-01-22] MEDS: LEVEMIR SUB-Q SCH (22:42)
[2017-01-22] MEDS: ZOCOR PO SCH (22:45)
[2017-01-23 06:57] LABS: Basophils % (Auto) 0.7 % (0.0-1.8); Eosinophils % (Auto) 1.5 % (0.0-4.3); Hematocrit 40.1 % (30.3-42.9); Hemoglobin 13.3 gm/dl (10.1-14.3); Mean Corpuscular HGB Conc 33 % (30-34); Mean Corpuscular Hemoglobin 30 pg (28-32); Mean Corpuscular Volume 91 fl (79-97); Platelet Count 275 K/mm3 (140-440); Red Blood Count 4.39 M/mm3 (3.65-5.03); Red Cell Distribution Width 13.5 % (13.2-15.2); White Blood Count 6.5 K/mm3 (4.5-11.0)
[2017-01-23 07:40] LABS: Anion Gap 18 mmol/L; Blood Urea Nitrogen 16 mg/dL (7-17); Carbon Dioxide 28 mmol/L (22-30); Chloride 96.8 mmol/L (98-107); Glucose 98 mg/dL (65-100); Potassium 3.1 mmol/L (3.6-5.0); Sodium 140 mmol/L (137-145)
[2017-01-23] MEDS: GLUCOPHAGE PO SCH (11:23)
[2017-01-23] MEDS: ASPIRIN PO SCH (11:23)
[2017-01-23] MEDS: ZESTRIL PO SCH (11:24)
[2017-01-23] MEDS: LOVENOX SUB-Q SCH (11:24)
[2017-01-23] MEDS: HCTZ PO SCH (11:24)
[2017-01-23] MEDS: NOVOLOG SUB-Q SCH ×3 (11:26→22:30)
--- NOTE | 2017-01-23 11:57 | Progress Note ---
Assessment and Plan Assessment and plan: 1. Acute CVA with right-sided weakness. Continue PT/OT. Continue aspirin and Zocor for secondary prevention. Continue stroke education, PT/OT/speech therapy. No indication for pharmacologic thrombolysis with IV tPA or mechanical thrombectomy due to last known normal > 6 hrs from presentation. MRI revealed a 1.1 cm focus of acute to subacute ischemia in the left basal ganglia. No evidence of hemorrhage. MRA was unremarkable. Echocardiogram revealed mild concentric left ventricular hypertrophy. Global left ventricular wall motion and contractility at all within normal limits. Global left ventricle systolic function is normal. EF 55-60%. Abnormal left ventricular diastolic filling observed consistent with impaired relaxation. Neurology following. 2. Hypertension. Continue current hypertensive medications. Maintain blood pressure per neurology recommendations. 3. Diabetes mellitus type 2. Diabetes appears to be uncontrolled given hemoglobin A1c is 12.4. Lantus started at bedtime. Continue metformin. Continue Accu-Cheks and sliding scale insulin.\ 4. Disposition. Physical therapy recommends for acute rehabilitation discharge. However, patient has no insurance. Case management is aware and working diligently regarding discharge planning. History Interval history: No new issues overnight. Hospitalist Physical - Constitutional Vitals: Temp Pulse Resp BP Pulse Ox 98.1 F 78 18 141/77 98 01/23/17 08:00 01/23/17 11:24 01/23/17 08:00 01/23/17 11:24 01/23/17 08:00 General appearance: Present: no acute distress - EENT Eyes: Present: PERRL, EOM intact ENT: hearing intact, clear oral mucosa, dentition normal - Neck Neck: Present: supple, normal ROM - Respiratory Respiratory effort: normal Respiratory: bilateral: CTA - Cardiovascular Rhythm: regular Heart Sounds: Present: S1 & S2. Absent: gallop, rub - Extremities Extremities: no ischemia, No edema, Full ROM - Abdominal General gastrointestinal: soft, non-tender, non-distended, normal bowel sounds - Integumentary Integumentary: Present: clear, warm, dry - Neurologic Neurologic: CNII-XII intact, moves all extremities Results - Labs CBC & Chem 7: 01/23/17 06:27 01/23/17 06:27 Labs: Laboratory Last Values WBC 6.5 K/mm3 (4.5-11.0) 01/23/17 06:27 RBC 4.39 M/mm3 (3.65-5.03) 01/23/17 06:27 Hgb 13.3 gm/dl (10.1-14.3) 01/23/17 06:27 Hct 40.1 % (30.3-42.9) 01/23/17 06:27 MCV 91 fl (79-97) 01/23/17 06:27 MCH 30 pg (28-32) 01/23/17 06:27 MCHC 33 % (30-34) 01/23/17 06:27 RDW 13.5 % (13.2-15.2) 01/23/17 06:27 Plt Count 275 K/mm3 (140-440) 01/23/17 06:27 Lymph % (Auto) 40.0 % (13.4-35.0) H 01/23/17 06:27 [place] % (Auto) 12.4 % (0.0-7.3) H 01/23/17 06:27 Eos % (Auto) 1.5 % (0.0-4.3) 01/23/17 06:27 Baso % (Auto) 0.7 % (0.0-1.8) 01/23/17 06:27 Lymph # 2.6 K/mm3 (1.2-5.4) 01/23/17 06:27 [place] # 0.8 K/mm3 (0.0-0.8) 01/23/17 06:27 Eos # 0.1 K/mm3 (0.0-0.4) 01/23/17 06:27 Baso # 0.0 K/mm3 (0.0-0.1) 01/23/17 06:27 Seg Neutrophils % 45.4 % (40.0-70.0) 01/23/17 06:27 Seg Neutrophils # 3.0 K/mm3 (1.8-7.7) 01/23/17 06:27 PT 13.3 Sec. (12.2-14.9) 01/18/17 00:15 INR 1.02 (0.87-1.13) 01/18/17 00:15 APTT 29.1 Sec. (24.2-36.6) 01/18/17 00:15 VBG pH 7.405 (7.320-7.420) 01/18/17 00:15 Sodium 140 mmol/L (137-145) 01/23/17 06:27 Potassium 3.1 mmol/L (3.6-5.0) L 01/23/17 06:27 Chloride 96.8 mmol/L (98-107) L 01/23/17 06:27 Carbon Dioxide 28 mmol/L (22-30) 01/23/17 06:27 Anion Gap 18 mmol/L 01/23/17 06:27 BUN 16 mg/dL (7-17) 01/23/17 06:27 Creatinine 0.8 mg/dL (0.7-1.2) 01/23/17 06:27 Estimated GFR > 60 ml/min 01/23/17 06:27 BUN/Creatinine Ratio 20.00 % 01/23/17 06:27 Glucose 98 mg/dL (65-100) 01/23/17 06:27 POC Glucose 359 (70-105) H 01/22/17 21:39 Hemoglobin A1c 12.4 % (4-6) H 01/19/17 08:38 Calcium 9.0 mg/dL (8.4-10.2) 01/23/17 06:27 Total Bilirubin 0.40 mg/dL (0.1-1.2) 01/22/17 07:01 AST 10 units/L (5-40) 01/22/17 07:01 ALT 15 units/L (7-56) 01/22/17 07:01 Alkaline Phosphatase 68 units/L (35-129) 01/22/17 07:01 Total Protein 6.9 g/dL (6.3-8.2) 01/22/17 07:01 Albumin 3.5 g/dL (3.9-5) L 01/22/17 07:01 Albumin/Globulin Ratio 1.0 % 01/22/17 07:01 Triglycerides 86 mg/dL (2-149) 01/19/17 08:38 Cholesterol 183 mg/dL (50-199) 01/19/17 08:38 LDL Cholesterol Direct 121 mg/dL (50-130) 01/19/17 08:38 HDL Cholesterol 45 mg/dL (40-59) 01/19/17 08:38 Cholesterol/HDL Ratio 4.06 % 01/19/17 08:38 Urine Color Yellow (Yellow) 01/18/17 Unknown Urine Turbidity Clear (Clear) 01/18/17 Unknown Urine pH 5.0 (5.0-7.0) 01/18/17 Unknown Ur Specific [place] 1.025 (1.003-1.030) 01/18/17 Unknown Urine Protein 30 mg/dl mg/dL (Negative) 01/18/17 Unknown Urine Glucose (UA) >=500 mg/dL (Negative) 01/18/17 Unknown Urine Ketones Tr mg/dL (Negative) 01/18/17 Unknown Urine Blood Mod (Negative) 01/18/17 Unknown Urine Nitrite Neg (Negative) 01/18/17 Unknown Urine Bilirubin Neg (Negative) 01/18/17 Unknown Urine Urobilinogen < 2.0 mg/dL (<2.0) 01/18/17 Unknown Ur Leukocyte Esterase Lg (Negative) 01/18/17 Unknown Urine WBC (Auto) 26.0 /HPF (0.0-6.0) H 01/18/17 Unknown Urine RBC (Auto) 6.0 /HPF (0.0-6.0) 01/18/17 Unknown U Epithel Cells (Auto) 1.0 /HPF (0-13.0) 01/18/17 Unknown Urine Bacteria (Auto) 2+ /HPF (Negative) 01/18/17 Unknown Urine Mucus Few /HPF 01/18/17 Unknown
[2017-01-23] MEDS ORDERED: K-DUR PO ONE ×2 (15:00→17:30)
[2017-01-23] MEDS: ZOCOR PO SCH (22:03)
[2017-01-23] MEDS: LEVEMIR SUB-Q SCH (22:35)
[2017-01-24] MEDS: GLUCOPHAGE PO SCH (08:09)
[2017-01-24] MEDS: HCTZ PO SCH (10:09)
[2017-01-24] MEDS: ASPIRIN PO SCH (10:10)
[2017-01-24] MEDS: LOVENOX SUB-Q SCH (10:11)
[2017-01-24] MEDS: ZESTRIL PO SCH (11:10)
--- NOTE | 2017-01-24 11:37 | Progress Note ---
Assessment and Plan - Patient Problems (1) CVA (cerebral vascular accident) Current Visit: Yes Status: Acute Qualifiers: CVA mechanism: C Precerebral and cerebral artery: P Laterality of affected vessel: left Plan to address problem: Patient with acute CVA left basal ganglia. Provided stroke education with family. Discussed subacute rehabilitation. Continue physical therapy OT aspirin and statin. Blood pressure fairly well-controlled. [facility]. Case management aggressively seeking transfer now. (2) Diabetes mellitus Current Visit: Yes Status: Acute Qualifiers: Diabetes mellitus type: D Diabetes mellitus complication status: D Diabetes mellitus complication detail: D Diabetic retinopathy severity: D Proliferative retinopathy type: P Diabetes mellitus macular edema: D Diabetes mellitus [facility] insulin use: D Laterality: L Chronic kidney disease stage: C Plan to address problem: Diabetes suboptimal control. Insulin was just adjusted yesterday. We'll not change at this particular time discussed with family. If remains elevated tomorrow would titrate up tomorrow. (3) Hypertension Current Visit: Yes Status: Acute Qualifiers: Hypertension type: H Plan to address problem: Hypertension well-controlled with current antihypertensives at this time. (4) Right sided weakness Current Visit: Yes Status: Acute History Interval history: Patient mother at the bedside all questions and concerns answered to their satisfaction. Patient mother did state that the daughter was a little slow at baseline however seemed to be a bit more slow today. This is in fact secondary to her CVA this was explained to the mother to her satisfaction. All concerns answered. Hospitalist Physical - Constitutional Vitals: Temp Pulse Resp BP Pulse Ox 97.3 F L 71 16 144/83 97 01/24/17 10:39 01/24/17 10:39 01/24/17 10:39 01/24/17 10:39 01/24/17 10:39 General appearance: Present: no acute distress - EENT Eyes: Present: PERRL, EOM intact ENT: hearing intact, clear oral mucosa, dentition normal (ABG wasmanagement slow motion and) - Neck Neck: Present: supple, normal ROM - Respiratory Respiratory effort: normal Respiratory: bilateral: CTA - Cardiovascular Rhythm: regular Heart Sounds: Present: S1 & S2 - Extremities Extremities: pulses intact, pulses symmetrical, No edema Extremity abnormal: other (right-sided hemiparesis) Peripheral Pulses: within normal limits - Abdominal General gastrointestinal: soft, non-tender, non-distended - Psychiatric Psychiatric: appropriate mood/affect, cooperative - Neurologic Neurologic: focal deficits Results - Labs CBC & Chem 7: 01/23/17 06:27 01/23/17 06:27 Labs: Laboratory Last Values WBC 6.5 K/mm3 (4.5-11.0) 01/23/17 06:27 RBC 4.39 M/mm3 (3.65-5.03) 01/23/17 06:27 Hgb 13.3 gm/dl (10.1-14.3) 01/23/17 06:27 Hct 40.1 % (30.3-42.9) 01/23/17 06:27 MCV 91 fl (79-97) 01/23/17 06:27 MCH 30 pg (28-32) 01/23/17 06:27 MCHC 33 % (30-34) 01/23/17 06:27 RDW 13.5 % (13.2-15.2) 01/23/17 06:27 Plt Count 275 K/mm3 (140-440) 01/23/17 06:27 Lymph % (Auto) 40.0 % (13.4-35.0) H 01/23/17 06:27 [place] % (Auto) 12.4 % (0.0-7.3) H 01/23/17 06:27 Eos % (Auto) 1.5 % (0.0-4.3) 01/23/17 06:27 Baso % (Auto) 0.7 % (0.0-1.8) 01/23/17 06:27 Lymph # 2.6 K/mm3 (1.2-5.4) 01/23/17 06:27 [place] # 0.8 K/mm3 (0.0-0.8) 01/23/17 06:27 Eos # 0.1 K/mm3 (0.0-0.4) 01/23/17 06:27 Baso # 0.0 K/mm3 (0.0-0.1) 01/23/17 06:27 Seg Neutrophils % 45.4 % (40.0-70.0) 01/23/17 06:27 Seg Neutrophils # 3.0 K/mm3 (1.8-7.7) 01/23/17 06:27 PT 13.3 Sec. (12.2-14.9) 01/18/17 00:15 INR 1.02 (0.87-1.13) 01/18/17 00:15 APTT 29.1 Sec. (24.2-36.6) 01/18/17 00:15 VBG pH 7.405 (7.320-7.420) 01/18/17 00:15 Sodium 140 mmol/L (137-145) 01/23/17 06:27 Potassium 3.1 mmol/L (3.6-5.0) L 01/23/17 06:27 Chloride 96.8 mmol/L (98-107) L 01/23/17 06:27 Carbon Dioxide 28 mmol/L (22-30) 01/23/17 06:27 Anion Gap 18 mmol/L 01/23/17 06:27 BUN 16 mg/dL (7-17) 01/23/17 06:27 Creatinine 0.8 mg/dL (0.7-1.2) 01/23/17 06:27 Estimated GFR > 60 ml/min 01/23/17 06:27 BUN/Creatinine Ratio 20.00 % 01/23/17 06:27 Glucose 98 mg/dL (65-100) 01/23/17 06:27 POC Glucose 211 (70-105) H 01/24/17 07:11 Hemoglobin A1c 12.4 % (4-6) H 01/19/17 08:38 Calcium 9.0 mg/dL (8.4-10.2) 01/23/17 06:27 Total Bilirubin 0.40 mg/dL (0.1-1.2) 01/22/17 07:01 AST 10 units/L (5-40) 01/22/17 07:01 ALT 15 units/L (7-56) 01/22/17 07:01 Alkaline Phosphatase 68 units/L (35-129) 01/22/17 07:01 Total Protein 6.9 g/dL (6.3-8.2) 01/22/17 07:01 Albumin 3.5 g/dL (3.9-5) L 01/22/17 07:01 Albumin/Globulin Ratio 1.0 % 01/22/17 07:01 Triglycerides 86 mg/dL (2-149) 01/19/17 08:38 Cholesterol 183 mg/dL (50-199) 01/19/17 08:38 LDL Cholesterol Direct 121 mg/dL (50-130) 01/19/17 08:38 HDL Cholesterol 45 mg/dL (40-59) 01/19/17 08:38 Cholesterol/HDL Ratio 4.06 % 01/19/17 08:38 Urine Color Yellow (Yellow) 01/18/17 Unknown Urine Turbidity Clear (Clear) 01/18/17 Unknown Urine pH 5.0 (5.0-7.0) 01/18/17 Unknown Ur Specific [place] 1.025 (1.003-1.030) 01/18/17 Unknown Urine Protein 30 mg/dl mg/dL (Negative) 01/18/17 Unknown Urine Glucose (UA) >=500 mg/dL (Negative) 01/18/17 Unknown Urine Ketones Tr mg/dL (Negative) 01/18/17 Unknown Urine Blood Mod (Negative) 01/18/17 Unknown Urine Nitrite Neg (Negative) 01/18/17 Unknown Urine Bilirubin Neg (Negative) 01/18/17 Unknown Urine Urobilinogen < 2.0 mg/dL (<2.0) 01/18/17 Unknown Ur Leukocyte Esterase Lg (Negative) 01/18/17 Unknown Urine WBC (Auto) 26.0 /HPF (0.0-6.0) H 01/18/17 Unknown Urine RBC (Auto) 6.0 /HPF (0.0-6.0) 01/18/17 Unknown U Epithel Cells (Auto) 1.0 /HPF (0-13.0) 01/18/17 Unknown Urine Bacteria (Auto) 2+ /HPF (Negative) 01/18/17 Unknown Urine Mucus Few /HPF 01/18/17 Unknown
[2017-01-24] MEDS: NOVOLOG SUB-Q SCH ×3 (16:19→22:39)
[2017-01-24] MEDS: LEVEMIR SUB-Q SCH (22:37)
[2017-01-24] MEDS: ZOCOR PO SCH (22:38)
[2017-01-25] MEDS: NOVOLOG SUB-Q SCH ×5 (07:30→21:39)
[2017-01-25] MEDS: GLUCOPHAGE PO SCH (11:11)
[2017-01-25] MEDS: ASPIRIN PO SCH (11:11)
[2017-01-25] MEDS: HCTZ PO SCH (11:12)
[2017-01-25] MEDS: ZESTRIL PO SCH (11:12)
[2017-01-25] MEDS: LOVENOX SUB-Q SCH (11:12)
--- NOTE | 2017-01-25 18:05 | Progress Note ---
Assessment and Plan - Patient Problems (1) CVA (cerebral vascular accident) Current Visit: Yes Status: Acute Qualifiers: CVA mechanism: C Precerebral and cerebral artery: P Laterality of affected vessel: left Plan to address problem: With acute CVA left basal ganglia stroke. Eating well here for rehabilitation. Pending [facility] facility for repeat rehabilitation no insurance at this particular time case management working diligently on finding placed in a place. 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 (3) Hypertension Current Visit: Yes Status: Acute Qualifiers: Hypertension type: H Plan to address problem: Hypertension well-controlled with current antihypertensives at this time. (4) Right sided weakness Current Visit: Yes Status: Acute Plan to address problem: Waiting placement. History Interval history: She is up eating mother at bedside. All questions and concerns answered. Discussed insurance problems and rhythm finding to [facility] facility for rehabilitation. Chest pain no shortness of breath no altered mental status. Hospitalist Physical - Constitutional Vitals: Temp Pulse Resp BP Pulse Ox 98.0 F 84 18 130/74 98 01/25/17 07:30 01/25/17 12:00 01/25/17 10:00 01/25/17 11:12 01/25/17 07:30 General appearance: Present: no acute distress - EENT Eyes: Present: PERRL, EOM intact ENT: hearing intact, clear oral mucosa, dentition normal - Neck Neck: Present: supple, normal ROM - Respiratory Respiratory effort: normal Respiratory: bilateral: CTA - Cardiovascular Rhythm: regular - Extremities Extremities: no ischemia, No edema Extremity abnormal: edema Peripheral Pulses: within normal limits - Abdominal General gastrointestinal: soft, non-tender, non-distended, no hypoactive bowel sounds, no absent bowel sounds - Integumentary Integumentary: Present: clear, warm, dry - Psychiatric Psychiatric: appropriate mood/affect - Neurologic Neurologic: CNII-XII intact, focal deficits Results - Labs CBC & Chem 7: 01/23/17 06:27 01/23/17 06:27 Labs: Laboratory Last Values WBC 6.5 K/mm3 (4.5-11.0) 01/23/17 06:27 RBC 4.39 M/mm3 (3.65-5.03) 01/23/17 06:27 Hgb 13.3 gm/dl (10.1-14.3) 01/23/17 06:27 Hct 40.1 % (30.3-42.9) 01/23/17 06:27 MCV 91 fl (79-97) 01/23/17 06:27 MCH 30 pg (28-32) 01/23/17 06:27 MCHC 33 % (30-34) 01/23/17 06:27 RDW 13.5 % (13.2-15.2) 01/23/17 06:27 Plt Count 275 K/mm3 (140-440) 01/23/17 06:27 Lymph % (Auto) 40.0 % (13.4-35.0) H 01/23/17 06:27 [place] % (Auto) 12.4 % (0.0-7.3) H 01/23/17 06:27 Eos % (Auto) 1.5 % (0.0-4.3) 01/23/17 06:27 Baso % (Auto) 0.7 % (0.0-1.8) 01/23/17 06:27 Lymph # 2.6 K/mm3 (1.2-5.4) 01/23/17 06:27 [place] # 0.8 K/mm3 (0.0-0.8) 01/23/17 06:27 Eos # 0.1 K/mm3 (0.0-0.4) 01/23/17 06:27 Baso # 0.0 K/mm3 (0.0-0.1) 01/23/17 06:27 Seg Neutrophils % 45.4 % (40.0-70.0) 01/23/17 06:27 Seg Neutrophils # 3.0 K/mm3 (1.8-7.7) 01/23/17 06:27 PT 13.3 Sec. (12.2-14.9) 01/18/17 00:15 INR 1.02 (0.87-1.13) 01/18/17 00:15 APTT 29.1 Sec. (24.2-36.6) 01/18/17 00:15 VBG pH 7.405 (7.320-7.420) 01/18/17 00:15 Sodium 140 mmol/L (137-145) 01/23/17 06:27 Potassium 3.1 mmol/L (3.6-5.0) L 01/23/17 06:27 Chloride 96.8 mmol/L (98-107) L 01/23/17 06:27 Carbon Dioxide 28 mmol/L (22-30) 01/23/17 06:27 Anion Gap 18 mmol/L 01/23/17 06:27 BUN 16 mg/dL (7-17) 01/23/17 06:27 Creatinine 0.8 mg/dL (0.7-1.2) 01/23/17 06:27 Estimated GFR > 60 ml/min 01/23/17 06:27 BUN/Creatinine Ratio 20.00 % 01/23/17 06:27 Glucose 98 mg/dL (65-100) 01/23/17 06:27 POC Glucose 242 (70-105) H 01/25/17 11:28 Hemoglobin A1c 12.4 % (4-6) H 01/19/17 08:38 Calcium 9.0 mg/dL (8.4-10.2) 01/23/17 06:27 Total Bilirubin 0.40 mg/dL (0.1-1.2) 01/22/17 07:01 AST 10 units/L (5-40) 01/22/17 07:01 ALT 15 units/L (7-56) 01/22/17 07:01 Alkaline Phosphatase 68 units/L (35-129) 01/22/17 07:01 Total Protein 6.9 g/dL (6.3-8.2) 01/22/17 07:01 Albumin 3.5 g/dL (3.9-5) L 01/22/17 07:01 Albumin/Globulin Ratio 1.0 % 01/22/17 07:01 Triglycerides 86 mg/dL (2-149) 01/19/17 08:38 Cholesterol 183 mg/dL (50-199) 01/19/17 08:38 LDL Cholesterol Direct 121 mg/dL (50-130) 01/19/17 08:38 HDL Cholesterol 45 mg/dL (40-59) 01/19/17 08:38 Cholesterol/HDL Ratio 4.06 % 01/19/17 08:38 Urine Color Yellow (Yellow) 01/18/17 Unknown Urine Turbidity Clear (Clear) 01/18/17 Unknown Urine pH 5.0 (5.0-7.0) 01/18/17 Unknown Ur Specific [place] 1.025 (1.003-1.030) 01/18/17 Unknown Urine Protein 30 mg/dl mg/dL (Negative) 01/18/17 Unknown Urine Glucose (UA) >=500 mg/dL (Negative) 01/18/17 Unknown Urine Ketones Tr mg/dL (Negative) 01/18/17 Unknown Urine Blood Mod (Negative) 01/18/17 Unknown Urine Nitrite Neg (Negative) 01/18/17 Unknown Urine Bilirubin Neg (Negative) 01/18/17 Unknown Urine Urobilinogen < 2.0 mg/dL (<2.0) 01/18/17 Unknown Ur Leukocyte Esterase Lg (Negative) 01/18/17 Unknown Urine WBC (Auto) 26.0 /HPF (0.0-6.0) H 01/18/17 Unknown Urine RBC (Auto) 6.0 /HPF (0.0-6.0) 01/18/17 Unknown U Epithel Cells (Auto) 1.0 /HPF (0-13.0) 01/18/17 Unknown Urine Bacteria (Auto) 2+ /HPF (Negative) 01/18/17 Unknown Urine Mucus Few /HPF 01/18/17 Unknown
[2017-01-25] MEDS: ZOCOR PO SCH (21:34)
[2017-01-25] MEDS: LEVEMIR SUB-Q SCH (21:34)
[2017-01-26] MEDS: NOVOLOG SUB-Q SCH ×5 (09:55→21:55)
[2017-01-26] MEDS: HCTZ PO SCH (10:53)
[2017-01-26] MEDS: LOVENOX SUB-Q SCH (10:53)
[2017-01-26] MEDS: ASPIRIN PO SCH (10:53)
[2017-01-26] MEDS: GLUCOPHAGE PO SCH (10:53)
[2017-01-26] MEDS: ZESTRIL PO SCH (10:53)
--- NOTE | 2017-01-26 17:05 | Progress Note ---
Assessment and Plan Assessment and plan: 56-year-old with acute CVA with dense hemiparesis anticoagulated scheduled for rehabilitation. Total Time Spent with Patient (Minutes): 22 - Patient Problems (1) CVA (cerebral vascular accident) Current Visit: Yes Status: Acute Qualifiers: CVA mechanism: C Precerebral and cerebral artery: P Laterality of affected vessel: left Plan to address problem: At present patient just awaiting rehabilitation has passed per Mrs. Drummond stable waiting for rehabilitation services to take his case her case. Very pleasant good rehabilitation potential. 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 (3) Hypertension Current Visit: Yes Status: Acute Qualifiers: Hypertension type: H Plan to address problem: Hypertension well-controlled with current antihypertensives at this time. (4) Right sided weakness Current Visit: Yes Status: Acute Plan to address problem: Waiting placement. History Interval history: Patient talking without the mother. Alert and smiling no new concerns. Awaiting placement. Hospitalist Physical - Constitutional Vitals: Temp Pulse Resp BP Pulse Ox 98.9 F 75 20 152/90 98 01/26/17 16:24 01/26/17 16:24 01/26/17 16:24 01/26/17 16:24 01/26/17 16:24 General appearance: Present: no acute distress - EENT Eyes: Present: PERRL, EOM intact ENT: hearing intact, clear oral mucosa, dentition normal, other - Neck Neck: Present: supple. Absent: enlarged thyroid (facial droop some dysphagia and mild), masses or JVD, cervical LAD, carotid bruits - Respiratory Respiratory effort: normal Respiratory: bilateral: CTA - Cardiovascular Rhythm: regularly irregular Heart Sounds: Present: S1 & S2, systolic murmur - Extremities Extremities: no ischemia, pulses intact, pulses symmetrical Extremity abnormal: edema, other (hemiparesis) Peripheral Pulses: within normal limits - Abdominal General gastrointestinal: soft, non-tender, non-distended - Integumentary Integumentary: Present: clear, warm, dry - Psychiatric Psychiatric: appropriate mood/affect, intact judgment & insight, cooperative ( dense hemiparesis) - Neurologic Neurologic: CNII-XII intact, focal deficits, other Results - Labs CBC & Chem 7: 01/23/17 06:27 01/23/17 06:27 Labs: Laboratory Last Values WBC 6.5 K/mm3 (4.5-11.0) 01/23/17 06:27 RBC 4.39 M/mm3 (3.65-5.03) 01/23/17 06:27 Hgb 13.3 gm/dl (10.1-14.3) 01/23/17 06:27 Hct 40.1 % (30.3-42.9) 01/23/17 06:27 MCV 91 fl (79-97) 01/23/17 06:27 MCH 30 pg (28-32) 01/23/17 06:27 MCHC 33 % (30-34) 01/23/17 06:27 RDW 13.5 % (13.2-15.2) 01/23/17 06:27 Plt Count 275 K/mm3 (140-440) 01/23/17 06:27 Lymph % (Auto) 40.0 % (13.4-35.0) H 01/23/17 06:27 [place] % (Auto) 12.4 % (0.0-7.3) H 01/23/17 06:27 Eos % (Auto) 1.5 % (0.0-4.3) 01/23/17 06:27 Baso % (Auto) 0.7 % (0.0-1.8) 01/23/17 06:27 Lymph # 2.6 K/mm3 (1.2-5.4) 01/23/17 06:27 [place] # 0.8 K/mm3 (0.0-0.8) 01/23/17 06:27 Eos # 0.1 K/mm3 (0.0-0.4) 01/23/17 06:27 Baso # 0.0 K/mm3 (0.0-0.1) 01/23/17 06:27 Seg Neutrophils % 45.4 % (40.0-70.0) 01/23/17 06:27 Seg Neutrophils # 3.0 K/mm3 (1.8-7.7) 05/31/17 06:27 PT 13.3 Sec. (12.2-14.9) 01/18/17 00:15 INR 1.02 (0.87-1.13) 01/18/17 00:15 APTT 29.1 Sec. (24.2-36.6) 01/18/17 00:15 VBG pH 7.405 (7.320-7.420) 01/18/17 00:15 Sodium 140 mmol/L (137-145) 01/23/17 06:27 Potassium 3.1 mmol/L (3.6-5.0) L 01/23/17 06:27 Chloride 96.8 mmol/L (98-107) L 01/23/17 06:27 Carbon Dioxide 28 mmol/L (22-30) 01/23/17 06:27 Anion Gap 18 mmol/L 01/23/17 06:27 BUN 16 mg/dL (7-17) 01/23/17 06:27 Creatinine 0.8 mg/dL (0.7-1.2) 01/23/17 06:27 Estimated GFR > 60 ml/min 01/23/17 06:27 BUN/Creatinine Ratio 20.00 % 01/23/17 06:27 Glucose 98 mg/dL (65-100) 01/23/17 06:27 POC Glucose 125 (70-105) H 01/26/17 07:56 Hemoglobin A1c 12.4 % (4-6) H 01/19/17 08:38 Calcium 9.0 mg/dL (8.4-10.2) 01/23/17 06:27 Total Bilirubin 0.40 mg/dL (0.1-1.2) 01/22/17 07:01 AST 10 units/L (5-40) 01/22/17 07:01 ALT 15 units/L (7-56) 01/22/17 07:01 Alkaline Phosphatase 68 units/L (35-129) 01/22/17 07:01 Total Protein 6.9 g/dL (6.3-8.2) 01/22/17 07:01 Albumin 3.5 g/dL (3.9-5) L 01/22/17 07:01 Albumin/Globulin Ratio 1.0 % 01/22/17 07:01 Triglycerides 86 mg/dL (2-149) 01/19/17 08:38 Cholesterol 183 mg/dL (50-199) 01/19/17 08:38 LDL Cholesterol Direct 121 mg/dL (50-130) 01/19/17 08:38 HDL Cholesterol 45 mg/dL (40-59) 01/19/17 08:38 Cholesterol/HDL Ratio 4.06 % 01/19/17 08:38 Urine Color Yellow (Yellow) 01/18/17 Unknown Urine Turbidity Clear (Clear) 01/18/17 Unknown Urine pH 5.0 (5.0-7.0) 01/18/17 Unknown Ur Specific [place] 1.025 (1.003-1.030) 01/18/17 Unknown Urine Protein 30 mg/dl mg/dL (Negative) 01/18/17 Unknown Urine Glucose (UA) >=500 mg/dL (Negative) 01/18/17 Unknown Urine Ketones Tr mg/dL (Negative) 01/18/17 Unknown Urine Blood Mod (Negative) 01/18/17 Unknown Urine Nitrite Neg (Negative) 01/18/17 Unknown Urine Bilirubin Neg (Negative) 01/18/17 Unknown Urine Urobilinogen < 2.0 mg/dL (<2.0) 01/18/17 Unknown Ur Leukocyte Esterase Lg (Negative) 01/18/17 Unknown Urine WBC (Auto) 26.0 /HPF (0.0-6.0) H 01/18/17 Unknown Urine RBC (Auto) 6.0 /HPF (0.0-6.0) 01/18/17 Unknown U Epithel Cells (Auto) 1.0 /HPF (0-13.0) 01/18/17 Unknown Urine Bacteria (Auto) 2+ /HPF (Negative) 01/18/17 Unknown Urine Mucus Few /HPF 01/18/17 Unknown
[2017-01-26] MEDS: LEVEMIR SUB-Q SCH (21:55)
[2017-01-26] MEDS: ZOCOR PO SCH (21:57)
[2017-01-27] MEDS: NOVOLOG SUB-Q SCH ×4 (08:00→22:20)
[2017-01-27] MEDS: ASPIRIN PO SCH (11:09)
[2017-01-27] MEDS: GLUCOPHAGE PO SCH (11:09)
[2017-01-27] MEDS: HCTZ PO SCH (11:09)
[2017-01-27] MEDS: ZESTRIL PO SCH (11:09)
[2017-01-27] MEDS: LOVENOX SUB-Q SCH (11:09)
--- NOTE | 2017-01-27 16:28 | Progress Note ---
Assessment and Plan Assessment and plan: 56-year-old with acute CVA with dense hemiparesis anticoagulated scheduled for rehabilitation. - Patient Problems (1) CVA (cerebral vascular accident) Current Visit: Yes Status: Acute Qualifiers: CVA mechanism: C Precerebral and cerebral artery: P Laterality of affected vessel: left Plan to address problem: At present patient just awaiting rehabilitation has passed per Mrs. Drummond stable waiting for rehabilitation services to take his case her case. Very pleasant good rehabilitation potential. (2) Diabetes mellitus Current Visit: Yes Status: Acute Qualifiers: Diabetes mellitus type: D Diabetes mellitus complication status: D Diabetes mellitus complication detail: D Diabetic retinopathy severity: D Proliferative retinopathy type: P Diabetes mellitus macular edema: D Diabetes mellitus [facility] insulin use: D Laterality: L Chronic kidney disease stage: C Plan to address problem: Continues to have fair control no changes in medical management. Awaiting placement. (3) Hypertension Current Visit: Yes Status: Acute Qualifiers: Hypertension type: H Plan to address problem: Patient remains normotensive would titrate accordingly. (4) Right sided weakness Current Visit: Yes Status: Acute Plan to address problem: Waiting placement. History Interval history: No new changes over p.m. patient feels good alert oriented no new concerns all questions answered. Still awaiting placement. Patient no insurance but requires rehabilitation. Hospitalist Physical - Constitutional Vitals: Temp Pulse Resp BP Pulse Ox 98.4 F 63 20 137/75 98 01/27/17 08:00 01/27/17 08:00 01/27/17 08:00 01/27/17 08:00 01/27/17 08:00 General appearance: Present: no acute distress - EENT Eyes: Present: PERRL, EOM intact ENT: hearing intact, clear oral mucosa, dentition normal, other - Neck Neck: Present: supple, normal ROM (facial droop) - Respiratory Respiratory effort: normal Respiratory: bilateral: CTA - Cardiovascular Rhythm: regular - Extremities Extremities: no ischemia, pulses intact, pulses symmetrical, No edema Peripheral Pulses: within normal limits - Abdominal General gastrointestinal: soft, non-tender, non-distended - Integumentary Integumentary: Present: clear, warm, dry - Psychiatric Psychiatric: appropriate mood/affect, cooperative - Neurologic Neurologic: focal deficits, other (dense left hemiparesis) Results - Labs CBC & Chem 7: 01/23/17 06:27 01/23/17 06:27 Labs: Laboratory Last Values WBC 6.5 K/mm3 (4.5-11.0) 01/23/17 06:27 RBC 4.39 M/mm3 (3.65-5.03) 01/23/17 06:27 Hgb 13.3 gm/dl (10.1-14.3) 01/23/17 06:27 Hct 40.1 % (30.3-42.9) 01/23/17 06:27 MCV 91 fl (79-97) 01/23/17 06:27 MCH 30 pg (28-32) 01/23/17 06:27 MCHC 33 % (30-34) 01/23/17 06:27 RDW 13.5 % (13.2-15.2) 01/23/17 06:27 Plt Count 275 K/mm3 (140-440) 01/23/17 06:27 Lymph % (Auto) 40.0 % (13.4-35.0) H 01/23/17 06:27 [place] % (Auto) 12.4 % (0.0-7.3) H 01/23/17 06:27 Eos % (Auto) 1.5 % (0.0-4.3) 01/23/17 06:27 Baso % (Auto) 0.7 % (0.0-1.8) 01/23/17 06:27 Lymph # 2.6 K/mm3 (1.2-5.4) 01/23/17 06:27 [place] # 0.8 K/mm3 (0.0-0.8) 01/23/17 06:27 Eos # 0.1 K/mm3 (0.0-0.4) 01/23/17 06:27 Baso # 0.0 K/mm3 (0.0-0.1) 01/23/17 06:27 Seg Neutrophils % 45.4 % (40.0-70.0) 01/23/17 06:27 Seg Neutrophils # 3.0 K/mm3 (1.8-7.7) 01/23/17 06:27 PT 13.3 Sec. (12.2-14.9) 01/18/17 00:15 INR 1.02 (0.87-1.13) 01/18/17 00:15 APTT 29.1 Sec. (24.2-36.6) 01/18/17 00:15 VBG pH 7.405 (7.320-7.420) 01/18/17 00:15 Sodium 140 mmol/L (137-145) 01/23/17 06:27 Potassium 3.1 mmol/L (3.6-5.0) L 01/23/17 06:27 Chloride 96.8 mmol/L (98-107) L 01/23/17 06:27 Carbon Dioxide 28 mmol/L (22-30) 01/23/17 06:27 Anion Gap 18 mmol/L 01/23/17 06:27 BUN 16 mg/dL (7-17) 01/23/17 06:27 Creatinine 0.8 mg/dL (0.7-1.2) 01/23/17 06:27 Estimated GFR > 60 ml/min 01/23/17 06:27 BUN/Creatinine Ratio 20.00 % 01/23/17 06:27 Glucose 98 mg/dL (65-100) 01/23/17 06:27 POC Glucose 98 (70-105) 01/27/17 08:08 Hemoglobin A1c 12.4 % (4-6) H 01/19/17 08:38 Calcium 9.0 mg/dL (8.4-10.2) 01/23/17 06:27 Total Bilirubin 0.40 mg/dL (0.1-1.2) 01/22/17 07:01 AST 10 units/L (5-40) 01/22/17 07:01 ALT 15 units/L (7-56) 01/22/17 07:01 Alkaline Phosphatase 68 units/L (35-129) 01/22/17 07:01 Total Protein 6.9 g/dL (6.3-8.2) 01/22/17 07:01 Albumin 3.5 g/dL (3.9-5) L 01/22/17 07:01 Albumin/Globulin Ratio 1.0 % 01/22/17 07:01 Triglycerides 86 mg/dL (2-149) 01/19/17 08:38 Cholesterol 183 mg/dL (50-199) 01/19/17 08:38 LDL Cholesterol Direct 121 mg/dL (50-130) 01/19/17 08:38 HDL Cholesterol 45 mg/dL (40-59) 01/19/17 08:38 Cholesterol/HDL Ratio 4.06 % 01/19/17 08:38 Urine Color Yellow (Yellow) 01/18/17 Unknown Urine Turbidity Clear (Clear) 01/18/17 Unknown Urine pH 5.0 (5.0-7.0) 01/18/17 Unknown Ur Specific [place] 1.025 (1.003-1.030) 01/18/17 Unknown Urine Protein 30 mg/dl mg/dL (Negative) 01/18/17 Unknown Urine Glucose (UA) >=500 mg/dL (Negative) 01/18/17 Unknown Urine Ketones Tr mg/dL (Negative) 01/18/17 Unknown Urine Blood Mod (Negative) 01/18/17 Unknown Urine Nitrite Neg (Negative) 01/18/17 Unknown Urine Bilirubin Neg (Negative) 01/18/17 Unknown Urine Urobilinogen < 2.0 mg/dL (<2.0) 01/18/17 Unknown Ur Leukocyte Esterase Lg (Negative) 01/18/17 Unknown Urine WBC (Auto) 26.0 /HPF (0.0-6.0) H 01/18/17 Unknown Urine RBC (Auto) 6.0 /HPF (0.0-6.0) 01/18/17 Unknown U Epithel Cells (Auto) 1.0 /HPF (0-13.0) 01/18/17 Unknown Urine Bacteria (Auto) 2+ /HPF (Negative) 01/18/17 Unknown Urine Mucus Few /HPF 01/18/17 Unknown
[2017-01-27] MEDS: ZOCOR PO SCH (22:19)
[2017-01-27] MEDS: LEVEMIR SUB-Q SCH (22:20)
[2017-01-28] MEDS: ASPIRIN PO SCH (11:00)
[2017-01-28] MEDS: NOVOLOG SUB-Q SCH ×4 (11:00→22:46)
[2017-01-28] MEDS: GLUCOPHAGE PO SCH (11:02)
--- NOTE | 2017-01-28 11:02 | Progress Note ---
Assessment and Plan Assessment and plan: 56-year-old with acute CVA with dense hemiparesis anticoagulated scheduled for rehabilitation. Still awaiting rehabilitation facility. Patient's no insurance but case management diligently attempting to find placement. Attempted conversation about going home. Will be difficult for the mother. - Patient Problems (1) CVA (cerebral vascular accident) Current Visit: Yes Status: Acute Qualifiers: CVA mechanism: C Precerebral and cerebral artery: P Laterality of affected vessel: left Plan to address problem: At present patient CVA stable risk factors has optimal control on anticoagulation with aspirin statin. Patient just awaiting rehabilitation services. Unable to find a place with no insurance coverage. Makes it very difficult. (2) Diabetes mellitus Current Visit: Yes Status: Acute Qualifiers: Diabetes mellitus type: D Diabetes mellitus complication status: D Diabetes mellitus complication detail: D Diabetic retinopathy severity: D Proliferative retinopathy type: P Diabetes mellitus macular edema: D Diabetes mellitus resource technician insulin use: D Laterality: L Chronic kidney disease stage: C Plan to address problem: Team to have suboptimal control blood sugar continue close observation. We'll increase Levemir today. (3) Hypertension Current Visit: Yes Status: Acute Qualifiers: Hypertension type: H Plan to address problem: And has optimal control of blood pressure. Blood pressure 129/73. Continue lisinopril (4) Right sided weakness Current Visit: Yes Status: Acute Plan to address problem: Waiting placement. History Interval history: No change in condition patient doing well no concerns. Blood pressures been well controlled. Still awaiting placement for care home facility. Will be difficult patient has no insurance and physical therapy states she needs physical therapy. May need to make some arrangements at home. Previous discussion with family states will not be to take care patient in that environment get her condition. Hospitalist Physical - Constitutional Vitals: Temp Pulse Resp BP Pulse Ox 98.3 F 66 18 129/73 98 01/28/17 08:00 01/28/17 08:00 01/28/17 08:00 01/28/17 08:00 01/28/17 08:00 General appearance: Present: no acute distress - EENT Eyes: Present: PERRL, EOM intact ENT: hearing intact, clear oral mucosa, dentition normal - Neck Neck: Present: supple, normal ROM - Respiratory Respiratory effort: normal Respiratory: bilateral: CTA - Cardiovascular Rhythm: regular Heart Sounds: Present: S1 & S2 - Extremities Extremities: no ischemia, pulses intact, pulses symmetrical, No edema, normal temperature Peripheral Pulses: within normal limits - Abdominal General gastrointestinal: soft, non-tender, non-distended, normal bowel sounds - Integumentary Integumentary: Present: clear, warm, dry - Neurologic Neurologic: focal deficits, other Results - Labs CBC & Chem 7: 01/23/17 06:27 01/23/17 06:27 Labs: Laboratory Last Values WBC 6.5 K/mm3 (4.5-11.0) 01/23/17 06:27 RBC 4.39 M/mm3 (3.65-5.03) 01/23/17 06:27 Hgb 13.3 gm/dl (10.1-14.3) 01/23/17 06:27 Hct 40.1 % (30.3-42.9) 01/23/17 06:27 MCV 91 fl (79-97) 01/23/17 06:27 MCH 30 pg (28-32) 01/23/17 06:27 MCHC 33 % (30-34) 01/23/17 06:27 RDW 13.5 % (13.2-15.2) 01/23/17 06:27 Plt Count 275 K/mm3 (140-440) 01/23/17 06:27 Lymph % (Auto) 40.0 % (13.4-35.0) H 01/23/17 06:27 [place] % (Auto) 12.4 % (0.0-7.3) H 01/23/17 06:27 Eos % (Auto) 1.5 % (0.0-4.3) 01/23/17 06:27 Baso % (Auto) 0.7 % (0.0-1.8) 01/23/17 06:27 Lymph # 2.6 K/mm3 (1.2-5.4) 01/23/17 06:27 [place] # 0.8 K/mm3 (0.0-0.8) 01/23/17 06:27 Eos # 0.1 K/mm3 (0.0-0.4) 01/23/17 06:27 Baso # 0.0 K/mm3 (0.0-0.1) 01/23/17 06:27 Seg Neutrophils % 45.4 % (40.0-70.0) 01/23/17 06:27 Seg Neutrophils # 3.0 K/mm3 (1.8-7.7) 01/23/17 06:27 PT 13.3 Sec. (12.2-14.9) 01/18/17 00:15 INR 1.02 (0.87-1.13) 01/18/17 00:15 APTT 29.1 Sec. (24.2-36.6) 01/18/17 00:15 VBG pH 7.405 (7.320-7.420) 01/18/17 00:15 Sodium 140 mmol/L (137-145) 01/23/17 06:27 Potassium 3.1 mmol/L (3.6-5.0) L 01/23/17 06:27 Chloride 96.8 mmol/L (98-107) L 01/23/17 06:27 Carbon Dioxide 28 mmol/L (22-30) 01/23/17 06:27 Anion Gap 18 mmol/L 01/23/17 06:27 BUN 16 mg/dL (7-17) 01/23/17 06:27 Creatinine 0.8 mg/dL (0.7-1.2) 01/23/17 06:27 Estimated GFR > 60 ml/min 01/23/17 06:27 BUN/Creatinine Ratio 20.00 % 01/23/17 06:27 Glucose 98 mg/dL (65-100) 01/23/17 06:27 POC Glucose 189 (70-105) H 01/27/17 21:18 Hemoglobin A1c 12.4 % (4-6) H 01/19/17 08:38 Calcium 9.0 mg/dL (8.4-10.2) 01/23/17 06:27 Total Bilirubin 0.40 mg/dL (0.1-1.2) 01/22/17 07:01 AST 10 units/L (5-40) 01/22/17 07:01 ALT 15 units/L (7-56) 01/22/17 07:01 Alkaline Phosphatase 68 units/L (35-129) 01/22/17 07:01 Total Protein 6.9 g/dL (6.3-8.2) 01/22/17 07:01 Albumin 3.5 g/dL (3.9-5) L 01/22/17 07:01 Albumin/Globulin Ratio 1.0 % 01/22/17 07:01 Triglycerides 86 mg/dL (2-149) 01/19/17 08:38 Cholesterol 183 mg/dL (50-199) 01/19/17 08:38 LDL Cholesterol Direct 121 mg/dL (50-130) 01/19/17 08:38 HDL Cholesterol 45 mg/dL (40-59) 01/19/17 08:38 Cholesterol/HDL Ratio 4.06 % 01/19/17 08:38 Urine Color Yellow (Yellow) 01/18/17 Unknown Urine Turbidity Clear (Clear) 01/18/17 Unknown Urine pH 5.0 (5.0-7.0) 01/18/17 Unknown Ur Specific [place] 1.025 (1.003-1.030) 01/18/17 Unknown Urine Protein 30 mg/dl mg/dL (Negative) 01/18/17 Unknown Urine Glucose (UA) >=500 mg/dL (Negative) 01/18/17 Unknown Urine Ketones Tr mg/dL (Negative) 01/18/17 Unknown Urine Blood Mod (Negative) 01/18/17 Unknown Urine Nitrite Neg (Negative) 01/18/17 Unknown Urine Bilirubin Neg (Negative) 01/18/17 Unknown Urine Urobilinogen < 2.0 mg/dL (<2.0) 01/18/17 Unknown Ur Leukocyte Esterase Lg (Negative) 01/18/17 Unknown Urine WBC (Auto) 26.0 /HPF (0.0-6.0) H 01/18/17 Unknown Urine RBC (Auto) 6.0 /HPF (0.0-6.0) 01/18/17 Unknown U Epithel Cells (Auto) 1.0 /HPF (0-13.0) 01/18/17 Unknown Urine Bacteria (Auto) 2+ /HPF (Negative) 01/18/17 Unknown Urine Mucus Few /HPF 01/18/17 Unknown
[2017-01-28] MEDS: ZESTRIL PO SCH (11:15)
[2017-01-28] MEDS: LOVENOX SUB-Q SCH (11:15)
[2017-01-28] MEDS: HCTZ PO SCH (11:15)
[2017-01-28] MEDS: LEVEMIR SUB-Q SCH (22:44)
[2017-01-28] MEDS: APRESOLINE IV PRN (22:47)
[2017-01-28] MEDS: ZOCOR PO SCH (22:47)
[2017-01-29] MEDS: GLUCOPHAGE PO SCH (08:00)
[2017-01-29] MEDS: NOVOLOG SUB-Q SCH ×5 (08:00→23:10)
--- NOTE | 2017-01-29 10:15 | Progress Note ---
Assessment and Plan Assessment and plan: Acute ischemic stroke with residual dysarthria and right hemiparesis. On Aspirin Hypertension. On lisinopril and HCTZ. There has been some fluctuation in blood pressure. Will monitor Diabetes mellitus type 2. Blood glucose uncontrolled. We'll increase Levemir to 24 units subcutaneous tenderness daily at bedtime. Continue Glucophage. Hyperlipidemia. On Zocor DVT prophylaxis with Lovenox Full CODE STATUS Disposition: Case Management working on resources to assist for safe discharge. Likely go home with home health History Interval history: Still has right-sided weakness Hospitalist Physical - Physical exam Narrative exam: Gen: appearance :Not in acute distress, HEENT: normocephalic atraumatic Neck :supple no JVD Lungs: clear to auscultation bilaterally, no crackles or wheezes Heart:S1 and S2 regular, no murmurs, rubs or gallop Abdomen soft, non-tender, non-distended, normal bowel sounds Extremities: no edema, no clubbing, or cyanosis Neuro : Awake, alert, oriented 3, right hemiparesis, dysarthria,facial asymmetry P - Constitutional Vitals: Temp Pulse Resp BP Pulse Ox 98.4 F 68 18 145/77 98 01/29/17 06:00 01/29/17 06:00 01/29/17 06:00 01/29/17 06:00 01/29/17 06:00 General appearance: Present: no acute distress Results - Labs CBC & Chem 7: 01/23/17 06:27 01/23/17 06:27 Labs: Laboratory Last Values WBC 6.5 K/mm3 (4.5-11.0) 01/23/17 06:27 RBC 4.39 M/mm3 (3.65-5.03) 01/23/17 06:27 Hgb 13.3 gm/dl (10.1-14.3) 01/23/17 06:27 Hct 40.1 % (30.3-42.9) 01/23/17 06:27 MCV 91 fl (79-97) 01/23/17 06:27 MCH 30 pg (28-32) 01/23/17 06:27 MCHC 33 % (30-34) 01/23/17 06:27 RDW 13.5 % (13.2-15.2) 01/23/17 06:27 Plt Count 275 K/mm3 (140-440) 01/23/17 06:27 Lymph % (Auto) 40.0 % (13.4-35.0) H 01/23/17 06:27 [place] % (Auto) 12.4 % (0.0-7.3) H 01/23/17 06:27 Eos % (Auto) 1.5 % (0.0-4.3) 01/23/17 06:27 Baso % (Auto) 0.7 % (0.0-1.8) 01/23/17 06:27 Lymph # 2.6 K/mm3 (1.2-5.4) 01/23/17 06:27 [place] # 0.8 K/mm3 (0.0-0.8) 01/23/17 06:27 Eos # 0.1 K/mm3 (0.0-0.4) 01/23/17 06:27 Baso # 0.0 K/mm3 (0.0-0.1) 01/23/17 06:27 Seg Neutrophils % 45.4 % (40.0-70.0) 01/23/17 06:27 Seg Neutrophils # 3.0 K/mm3 (1.8-7.7) 01/23/17 06:27 PT 13.3 Sec. (12.2-14.9) 01/18/17 00:15 INR 1.02 (0.87-1.13) 01/18/17 00:15 APTT 29.1 Sec. (24.2-36.6) 01/18/17 00:15 VBG pH 7.405 (7.320-7.420) 01/18/17 00:15 Sodium 140 mmol/L (137-145) 01/23/17 06:27 Potassium 3.1 mmol/L (3.6-5.0) L 01/23/17 06:27 Chloride 96.8 mmol/L (98-107) L 01/23/17 06:27 Carbon Dioxide 28 mmol/L (22-30) 01/23/17 06:27 Anion Gap 18 mmol/L 01/23/17 06:27 BUN 16 mg/dL (7-17) 01/23/17 06:27 Creatinine 0.8 mg/dL (0.7-1.2) 01/23/17 06:27 Estimated GFR > 60 ml/min 01/23/17 06:27 BUN/Creatinine Ratio 20.00 % 01/23/17 06:27 Glucose 98 mg/dL (65-100) 01/23/17 06:27 POC Glucose 189 (70-105) H 01/28/17 21:44 Hemoglobin A1c 12.4 % (4-6) H 01/19/17 08:38 Calcium 9.0 mg/dL (8.4-10.2) 01/23/17 06:27 Total Bilirubin 0.40 mg/dL (0.1-1.2) 01/22/17 07:01 AST 10 units/L (5-40) 01/22/17 07:01 ALT 15 units/L (7-56) 01/22/17 07:01 Alkaline Phosphatase 68 units/L (35-129) 01/22/17 07:01 Total Protein 6.9 g/dL (6.3-8.2) 01/22/17 07:01 Albumin 3.5 g/dL (3.9-5) L 01/22/17 07:01 Albumin/Globulin Ratio 1.0 % 01/22/17 07:01 Triglycerides 86 mg/dL (2-149) 01/19/17 08:38 Cholesterol 183 mg/dL (50-199) 01/19/17 08:38 LDL Cholesterol Direct 121 mg/dL (50-130) 01/19/17 08:38 HDL Cholesterol 45 mg/dL (40-59) 01/19/17 08:38 Cholesterol/HDL Ratio 4.06 % 01/19/17 08:38 Urine Color Yellow (Yellow) 01/18/17 Unknown Urine Turbidity Clear (Clear) 01/18/17 Unknown Urine pH 5.0 (5.0-7.0) 01/18/17 Unknown Ur Specific [place] 1.025 (1.003-1.030) 01/18/17 Unknown Urine Protein 30 mg/dl mg/dL (Negative) 01/18/17 Unknown Urine Glucose (UA) >=500 mg/dL (Negative) 01/18/17 Unknown Urine Ketones Tr mg/dL (Negative) 01/18/17 Unknown Urine Blood Mod (Negative) 01/18/17 Unknown Urine Nitrite Neg (Negative) 01/18/17 Unknown Urine Bilirubin Neg (Negative) 01/18/17 Unknown Urine Urobilinogen < 2.0 mg/dL (<2.0) 01/18/17 Unknown Ur Leukocyte Esterase Lg (Negative) 01/18/17 Unknown Urine WBC (Auto) 26.0 /HPF (0.0-6.0) H 01/18/17 Unknown Urine RBC (Auto) 6.0 /HPF (0.0-6.0) 01/18/17 Unknown U Epithel Cells (Auto) 1.0 /HPF (0-13.0) 01/18/17 Unknown Urine Bacteria (Auto) 2+ /HPF (Negative) 01/18/17 Unknown Urine Mucus Few /HPF 01/18/17 Unknown
[2017-01-29] MEDS: ZESTRIL PO SCH (10:53)
[2017-01-29] MEDS: LOVENOX SUB-Q SCH (10:54)
[2017-01-29] MEDS: ASPIRIN PO SCH (10:54)
[2017-01-29] MEDS: HCTZ PO SCH (10:54)
[2017-01-29] MEDS ORDERED: LEVEMIR SUB-Q SCH (22:00)
[2017-01-29] MEDS: ZOCOR PO SCH (23:10)
[2017-01-30] MEDS: NOVOLOG SUB-Q SCH ×2 (09:55→12:15)
--- NOTE | 2017-01-30 10:32 | Discharge Summary ---
Providers - Providers Date of Admission: 01/18/17 05:40 Date of discharge: 01/30/17 Attending physician: VANE VARGAS 01/18/17 06:57 Consult to Physician [CONS] Routine Consulting Provider: NYLA MCCABE Reason For Exam: cva Place consult to:: neuro Notified:: y Time called:: 07:25 Comment:: left message at ext [phone] 01/29/17 08:17 Consult to Dietitian/Nutrition [CONS] Routine Physician Instructions: Reason For Exam: Reason for Consult: Doroteo score 16 Primary care physician: FINANCIAL RECORDING CLERK Hospitalization Condition: Fair Disposition: [id number]/[place]-06 HOME UNDER HOME HLTH - Discharge Diagnoses (1) Acute ischemic stroke Status: Acute (2) Diabetes mellitus type 2 in nonobese Status: Acute Core Measure Documentation - Palliative Care Palliative Care/ Comfort Measures: Not Applicable - Core Measures Any of the following diagnoses?: stroke - Stroke Discharge Requirements Statin for LDL = or >70 mg/dl on DC: Yes Anticoag for atrial fib/atrial flutter: Not Applicable Antithrombotic for ischemic stroke: Yes Exam - Constitutional Vitals: Temp Pulse Resp BP Pulse Ox 98.9 F 66 20 128/80 97 01/30/17 08:25 01/30/17 08:25 01/30/17 08:25 01/30/17 08:25 01/30/17 08:25 Plan Activity: advance as tolerated Diet: low fat, low cholesterol, low salt, diabetic Special Instructions: physical therapy, home health RN Durable Medical Equipment Needed Upon Discharge: Walker-Rolling, Wheelchair, Bedside Commode Additional Instructions: 1.Follow up with PCP or [facility] in 1 week. 2.Home health Physical therapy Follow up with: PRIMARY CARE,MD [Primary Care Provider] - 3-5 Days Prescriptions: Aspirin [Aspirin TAB] 325 mg PO QDAY #30 tablet Insulin NPH/Regular [Novolin 70/30] 12 unit SQ BIDDIAB #1 vial Simvastatin [Zocor TAB] 20 mg PO QHS #30 tablet
[2017-01-30] MEDS: LOVENOX SUB-Q SCH (10:40)
[2017-01-30] MEDS: ZESTRIL PO SCH (10:40)
[2017-01-30] MEDS: ASPIRIN PO SCH (10:40)
[2017-01-30] MEDS: HCTZ PO SCH (10:40)
[2017-01-30] MEDS: GLUCOPHAGE PO SCH (10:40)
[2017-01-30 14:37] VITALS: BP 141/87
== END 2017-01-30 18:15 | disposition home health service (06) | DRG 65 ==
LOC: ED 00:13 → 4A 05:40
PROVIDERS: ADMIT Internal Medicine; ATTEND Internal Medicine
DX: I63.9 Cerebral infarction, unspecified (principal); G81.91 Hemiplegia, unspecified affecting right dominant side; I10 Essential (primary) hypertension; E11.65 Type 2 diabetes mellitus with hyperglycemia; E78.5 Hyperlipidemia, unspecified; F17.290 Nicotine dependence, other tobacco product, uncomplicated; Z60.2 Problems related to living alone; Z90.710 Acquired absence of both cervix and uterus; Z91.14 Patient's other noncompliance with medication regimen; Z83.3 Family history of diabetes mellitus; Z82.49 Family history of ischemic heart disease and other diseases of the circulatory system
CPT/HCPCS: 36415; 70450; 70496; 70498; 70544; 70551; 80048; 80053; 80061; 81001; 82805; 82962; 83036; 83721; 85025; 85610; 85730; 93005; 93010; 93306; 96365; 96372; 99406; J0360; J1650; J1815; J1818; Q9967